=== PATIENT | female | born 1990 | race Two or more races ===

== ENCOUNTER 2022-08-17 09:12 | Emergency (ER) | payer MEDICAID, SELFPAY ==
--- NOTE | ~2022-08-17 | CT_ITS ---
EXAMINATION: CT HEAD WITHOUT CONTRAST CLINICAL INFORMATION: Dizziness COMPARISON: None TECHNIQUE: Contiguous axial imaging was performed from the skull base to vertex without intravenous administration of contrast. This CT examination was performed using dose optimization techniques as appropriate, variously including the following: *Automated exposure control *Adjustment of mA and/or kV according to patient size (this includes techniques or standardized protocols for targeted exams where dose is matched to indication/reason for exam; i.e. extremities or head) *Use of iterative reconstruction technique DLP: 677 mGy-cm FINDINGS: There is no acute intra-axial, extra-axial bleed, masses, collection or midline shift. There is no acute infarction, edema or mass effect. There is slight asymmetric lateral ventricles but not enlarged. There is bibasal ganglia calcifications. No abnormality seen in the posterior fossa. Bone windows reveal no calvarial abnormality. Bilateral paranasal sinuses and mastoid air cells are well-aerated. No scalp soft tissue abnormality seen. CT/CT head/brain wo IV con IMPRESSION: No acute intracranial process seen.
[2022-08-17 09:22] VITALS: BP 106/68; BP 107/72; PULSE 75; PULSE 86; RESP 18; TEMP 36.5; O2SAT 100; BMI 27.5
--- NOTE | 2022-08-17 09:39 | ECG_ITS ---
Test Reason : diziness Blood Pressure : / mmHG Vent. Rate : 077 BPM Atrial Rate : 077 BPM P-R Int : 158 ms QRS Dur : 098 ms QT Int : 398 ms P-R-T Axes : 047 042 041 degrees QTc Int : 450 ms Normal sinus rhythm RSR' or QR pattern in V1 suggests right ventricular conduction delay Otherwise normal ECG No previous ECGs available Referred By: Luana Hwang Electronically Signed By:PRITI BARCLAY MD
--- NOTE | 2022-08-17 09:44 | ED_ITS ---
HPI - Dizziness General Chief Complaint: Dizziness Stated Complaint: DIZZINESS ON STANDING Time Seen by Provider: 08/17/22 09:16 Source: patient Mode of arrival: EMS Limitations: no limitations History of Present Illness HPI Narrative: 31 yo female with hx of migraines, hypothyroidism notes she had a migraine typic al for her last night took tylenol with relief. Woke up this AM with the room spinning - felt anxious and hot as well as nausea. This happened one one other time but not as bad. She has no CP/SOB not on OCPs. No recent URIs but suffers from chronic allergies. MD elicited complaint: dizziness Onset (ago): hour(s) (2) Timing: sudden onset, awoke with symptoms and intermittent Severity: moderate Description: room spinning Context: change in body position History of similar symptoms: Yes Exacerbating factors: movement/ambulation and change in body position Relieving factors: rest and lying down Associated symptoms: nausea Related Data Previous Rx's Medication Instructions Recorded meclizine 25 mg tablet 25 mg PO TID PRN dizziness #30 tabs 08/17/22 ondansetron 4 mg disintegrating 4 mg PO Q8H PRN nausea and 08/17/22 tablet vomiting #20 tabs Allergies Allergy/AdvReac Type Severity Reaction Status Date / Time hydrocodone AdvReac Nausea and Verified 08/17/22 09:39 Vomiting oxycodone AdvReac Nausea and Uncoded 08/17/22 09:39 Vomiting Review of Systems Review of Systems: Constitutional : No Fever, No Chills, No Fatigue ENT/Mouth : No sore throat, No Rhinorrhea Eyes: No Eye Pain, No Swelling, No Redness Cardiovascular : No Chest Pain, No SOB, No Dyspnea on Exertion Respiratory : No Cough, No Sputum Gastrointestinal : pos Nausea, No Vomiting, No Diarrhea, No abdominal Pain Genitourinary : No Dysuria, No Urinary Frequency, No Hematuria, Musculoskeletal : No joint pain, No Myalgias, No Joint Swelling Skin : No Skin Lesions, No rash Neuro : No Weakness, No Numbness, pos Dizziness, resolved Headache Psych : pos Anxiety/Panic, No Depression Heme/Lymph: No Bruising, No Bleeding,No Lymphadenopathy Endocrine : No Polyuria, No Polydipsia All other systems reviewed and are negative [facility] Past Medical History Attestation statement: The following information was validated with the patient. Medical History Hypothyroidism Migraines Social History Social History (Updated 08/17/22 @ 09:45 by Luana Hwang DO) Patient Tobacco Use Status: Never used Tobacco Advance Directives: No Physical Exam 2 Vital Signs: Vital Signs: Last Vital Signs Temp 97.7 F 08/17/22 09:22 Pulse 75 08/17/22 12:14 Resp 16 08/17/22 12:14 BP 98/62 08/17/22 12:14 Pulse Ox 98 08/17/22 12:14 O2 Del Method 08/17/22 12:14 BMI result Body Mass Index 27.5 Appearance: Alert. Oriented X3. No acute distress. Eyes: Pupils equal, round and reactive to light. ENT: Pharynx normal. TMs normal Neck: Normal inspection. Neck supple. CVS: Normal heart rate and rhythm. Pulses normal. Respiratory: No respiratory distress. Breath sounds normal. Abdomen: Soft and nontender. Skin: Skin warm and dry. Normal skin color. Normal skin turgor. Extremities: No lower extremity edema. No calf ttp Neuro: Oriented X 3. No motor deficit. No sensory deficit. no drift NIH Stroke Scale Internal: Initial- Upon Arrival Level of Consciousness: Alert Level of Consciousness Questions: Answers both questions correctly Level of Consciousness Commands: Performs both tasks correctly Best Gaze: Normal Visual: No visual loss Facial Palsy: Normal Motor Arm (Right): No drift Motor Arm (Left): No drift Motor Leg (Right): No drift Motor Leg (Left): No drift Limb Ataxia: Absent Sensory: Normal Best Language: No aphasia Dysarthia: Normal Extinction and Inattention: No abnormality Score: 0 Course Course Course Narrative: negative head CT, labs normal TSH mildly elevated - not taking her medications UA contaminated no urinary symptoms MDM - Dizziness MDM Narrative Medical decision making narrative: 31 yo female with hx of migraines and hypothyroidism here with c/o resolved migraine last night typical for her - no fevers, resolved and no meningeal signs doubt SAH or [employer] infection. Now c/o dizziness denies heavy bleeding, GIB symptoms CP/SOB not on OCPs. Has no other localizing neuro symptoms - doubt ACS/PE/posterior stroke. Possible vertigo had this one other time but much milder. Will hydrate obtain labs, EKG, zofran and PO meclizine dispo per results and findings. Lab Data Result diagrams: 08/17/22 10:15 08/17/22 10:15 Labs: Lab Results 08/17/22 08/17/22 08/17/22 Range/Units 09:46 09:46 10:15 WBC 9.1 (4.8-10.8) X10*3/uL RBC 4.15 L (4.20-5.50) X10*6/uL Hgb 12.8 (12.0-16.0) g/dl Hct 37.2 (37.0-47.0) % MCV 89.6 (80.0-98.0) fL MCH 30.8 (27.0-33.0) pg MCHC 34.4 (31.0-35.0) g/dl RDW 12.4 (11.0-16.0) % Plt Count 177 (160-400) X10*3/uL MPV 12.1 (9.4-12.3) fL Immature Gran % (Auto) 0.3 (0.0-0.4) % Neut % (Auto) 68.4 (45-73) % Lymph % (Auto) 21.4 (20-40) % [place] % (Auto) 7.9 (2-11) % Eos % (Auto) 1.6 (0-4) % Baso % (Auto) 0.4 (0-2) % Lymph # (Auto) 2.0 (1.2-4.9) X10*3/uL [place] # (Auto) 0.7 (0.1-1.2) X10*3/uL Eos # (Auto) 0.2 (0.0-0.4) X10*3/uL Baso # (Auto) 0.0 (0.0-0.2) X10*3/uL Abs Immat Gran (auto) 0.03 (0.00-0.03) X10*3/uL Absolute Neuts (auto) 6.2 (2.0-8.3) x10*3/uL Absolute Nucleated RBC 0.000 (0.0-0.012) X10*3/uL Nucleated RBC % (auto) 0.0 (0.0-0.2) /100WBC Sodium Potassium Chloride Carbon Dioxide Anion Gap BUN Creatinine Estim Creat Clear Calc Estimated GFR Random Glucose Calcium Magnesium TSH (0.32-4.0) uIU/mL Free T4 (0.71-1.85) ng/dL Urine Color Yellow Urine Appearance Clear Urine pH 5.5 (5.0-9.0) Ur Specific [place] 1.025 (1.005-1.025) Urine Protein Negative (Neg-Trace) mg/dL Urine Glucose (UA) Negative (Negative) mg/dL Urine Ketones Trace (Negative) mg/dL Urine Blood Negative (Negative) Urine Nitrite Negative (Negative) Ur Leukocyte Esterase Small (1+) H (Negative) Urine RBC 0-2 (0-2) /HPF Urine WBC 6-10 H (0-5) /HPF Ur Squamous Epith Cells 3-5 (0-2) /HPF Urine Bacteria 3+ (None Seen) Hyaline Casts 0-2 (0-2) /LPF Urine Test NEGATIVE (NEGATIVE) COVID-19 (SURYA) (Negative) COVID-19 Clin Com 08/17/22 08/17/22 08/17/22 Range/Units 10:15 10:15 10:15 WBC (4.8-10.8) X10*3/uL RBC (4.20-5.50) X10*6/uL Hgb (12.0-16.0) g/dl Hct (37.0-47.0) % MCV (80.0-98.0) fL MCH (27.0-33.0) pg MCHC (31.0-35.0) g/dl RDW (11.0-16.0) % Plt Count (160-400) X10*3/uL MPV (9.4-12.3) fL Immature Gran % (Auto) (0.0-0.4) % Neut % (Auto) (45-73) % Lymph % (Auto) (20-40) % [place] % (Auto) (2-11) % Eos % (Auto) (0-4) % Baso % (Auto) (0-2) % Lymph # (Auto) (1.2-4.9) X10*3/uL [place] # (Auto) (0.1-1.2) X10*3/uL Eos # (Auto) (0.0-0.4) X10*3/uL Baso # (Auto) (0.0-0.2) X10*3/uL Abs Immat Gran (auto) (0.00-0.03) X10*3/uL Absolute Neuts (auto) (2.0-8.3) x10*3/uL Absolute Nucleated RBC (0.0-0.012) X10*3/uL Nucleated RBC % (auto) (0.0-0.2) /100WBC Sodium Cancelled 137 Potassium Cancelled 4.3 Chloride Cancelled 106 Carbon Dioxide Cancelled 20 L Anion Gap Cancelled 15 BUN Cancelled 8 L Creatinine Cancelled 0.65 Estim Creat Clear Calc Cancelled 108.0 Estimated GFR Cancelled > 60 Random Glucose Cancelled 109 Calcium Cancelled 8.5 Magnesium Cancelled 1.6 TSH 4.71 H (0.32-4.0) uIU/mL Free T4 1.01 (0.71-1.85) ng/dL Urine Color Urine Appearance Urine pH (5.0-9.0) Ur Specific [place] (1.005-1.025) Urine Protein (Neg-Trace) mg/dL Urine Glucose (UA) (Negative) mg/dL Urine Ketones (Negative) mg/dL Urine Blood (Negative) Urine Nitrite (Negative) Ur Leukocyte Esterase (Negative) Urine RBC (0-2) /HPF Urine WBC (0-5) /HPF Ur Squamous Epith Cells (0-2) /HPF Urine Bacteria (None Seen) Hyaline Casts (0-2) /LPF Urine Test (NEGATIVE) COVID-19 (SURYA) Negative (Negative) COVID-19 Clin Com See Note ECG Data Attestation: I personally reviewed and interpreted this ECG as follows: ECG interpretation date: 08/17/22 ECG interpretation time: 10:25 Interpretation: Rate: 77 Rhythm: NSR [place]: normal Normal P waves. Normal LIAN. Normal QRS complex. ST T wave : normal no GILMAR qTC: normal prior studies: no acute ischemia The study has been interpreted contemporaneously by me. . Discharge Plan Discharge Clinical Impression: Dizziness Patient Disposition: Home, Self-Care Instructions: Vertigo (ED), Dizziness (ED) Additional Instructions: return to ED for any worsening symptoms or concerns CT head normal please follow up with your doctor if not better in 2 days Prescriptions: New meclizine 25 mg tablet 25 mg PO TID PRN (Reason: dizziness) Qty: 30 0RF ondansetron 4 mg tablet,disintegrating 4 mg PO Q8H PRN (Reason: nausea and vomiting) Qty: 20 0RF Stand Alone Forms: Work/School Release
[2022-08-17 09:56] LABS: Appearance Urine Clear; Color Urine Yellow; Glucose Urine UA Negative (Negative); Leukocyte Esterase Urine Small (1+) (Negative); Nitrite Urine Negative (Negative); PH 5.5 (5.0-9.0); Specific Gravity - Urine 1.025 (1.005-1.025); UMIC TRIGGER UACC YES; Urine Blood Negative (Negative); Urine Ketones Trace mg/dL (Negative); Urine Protein Negative (Neg-Trace)
[2022-08-17 09:57] LABS: UPreg QC Valid YES
[2022-08-17 09:58] LABS: Urine Pregnancy NEGATIVE (NEGATIVE)
[2022-08-17 10:01] LABS: Bacteria Urine 3+ (None Seen); Hyaline Casts Urine 0-2 /LPF (0-2); RBC Urine 0-2 /HPF (0-2); UACC Culture Trigger YES
[2022-08-17 10:19] LABS: MANUAL DIFF FLAG NO
[2022-08-17] MEDS: Lactated Ringers 1,000 ML 999 ML IV (10:22)
[2022-08-17] MEDS: ondansetron HCL 4 MG/2 ML VIAL IVPUSH (10:22)
[2022-08-17] MEDS: Meclizine HCl 25 MG TABLET PO (10:22)
[2022-08-17 10:24] LABS: Basophils Percent Auto 0.4 % (0-2); Eosinophils Absolute Auto 0.2 X10*3/uL (0.0-0.4); Eosinophils Percent Auto 1.6 % (0-4); Hematocrit 37.2 % (37.0-47.0); Hemoglobin 12.8 g/dl (12.0-16.0); Imm Gran Abs Auto 0.03 X10*3/uL (0.00-0.03); Imm Gran Pct Auto 0.3 % (0.0-0.4); Lymphocytes Percent Auto 21.4 % (20-40); Mean Corpuscular HGB Conc 34.4 g/dl (31.0-35.0); Mean Corpuscular Hemoglobin 30.8 pg (27.0-33.0); Mean Corpuscular Volume 89.6 fL (80.0-98.0); Mean Platelet Volume 12.1 fL (9.4-12.3); Monocytes Absolute Auto 0.7 X10*3/uL (0.1-1.2); Monocytes Percent Auto 7.9 % (2-11); Neutrophils Absolute Auto 6.2 x10*3/uL (2.0-8.3); Neutrophils Percent Auto 68.4 % (45-73); Platelet Count 177 X10*3/uL (160-400); Red Blood Count 4.15 X10*6/uL (4.20-5.50); Red Cell Distribution Width 12.4 % (11.0-16.0); White Blood Count 9.1 X10*3/uL (4.8-10.8)
[2022-08-17 10:51] LABS: COVID-19 Test Negative (Negative); IDNOW Serial# 55D5AD1C
[2022-08-17 10:54] LABS: TSH reflex Free T4 4.71 uIU/mL (0.32-4.0)
[2022-08-17 12:00] LABS: Anion Gap 15 (12-20); Blood Urea Nitrogen 8 mg/dL (9-16); Calcium 8.5 mg/dL (8.4-10.2); Carbon Dioxide 20 mmol/L (22-29); Chloride 106 mmol/L (96-108); Estimated Glomerular Filt Rate > 60; Glucose Random 109 mg/dL (60-115); Magnesium 1.6 mg/dL (1.6-2.6); Potassium 4.3 mmol/L (3.3-5.1); Sodium 137 mmol/L (135-145)
[2022-08-17 12:12] LABS: Free T4 (Free Thyroxine) 1.01 ng/dL (0.71-1.85)
[2022-08-17 12:14] VITALS: BP 98/62; PULSE 75; RESP 16; O2SAT 98
[2022-08-17] MEDS: Midazolam HCl/PF 2 MG/2 ML VIAL 1 MG IVPUSH (12:56)
== END 2022-08-17 14:27 | disposition home or self-care (01) ==
PROVIDERS: Emergency Provider Emergency Medicine
DX: R42 Dizziness and giddiness (principal); Z20.822 Contact with and (suspected) exposure to COVID-19; Z79.899 Other long term (current) drug therapy
CPT/HCPCS: 36415; 70450; 80048; 81001; 81025; 83735; 84439; 84443; 85025; 87086; 87635; 93005; 96361; 96374; 96375; 99284; J2250; J2405

== ENCOUNTER 2022-08-22 09:28 | Observation (INO) | payer MEDICAID, SELFPAY ==
[2022-08-22] VITALS (13 sets, daily range): BP systolic 96–128; BP diastolic 48–79; PULSE 62–103; RESP 12–18; TEMP 36.2–37.3; O2SAT 98–100; BMI 26.4
--- NOTE | ~2022-08-22 | MR_ITS ---
EXAMINATION: MR BRAIN WITHOUT CONTRAST CLINICAL INFORMATION: Dizziness, off balance, nausea and vomiting, and intermittent headache. COMPARISON: Head CT August 17, 2022. TECHNIQUE: Multiplanar, multisequence imaging of the brain was performed without intravenous contrast. FINDINGS: There is no acute infarction, mass, hemorrhage, or extra-axial collection. The ventricles, sulci, and basilar cisterns are normal in size and configuration. A few mild nonspecific foci of T2/FLAIR hyperintensity are seen within the cerebral white matter. There is mild nonsuppression of FLAIR signal within the high frontal parietal sulci as seen on series 9 image 20/. The flow voids of the major intracranial arteries appear intact. The bones and extracranial soft tissues are unremarkable. MR/MR head/brain wo con IMPRESSION: No acute infarct, mass lesion, or evidence of hydrocephalus. Mild nonsuppression of FLAIR signal seen within the high frontal parietal sulci. This finding is nonspecific and could be artifactual or related to trace subarachnoid hemorrhage or other causes of meningeal inflammation. If clinical signs of meningeal inflammation are present, consider lumbar puncture.
--- NOTE | ~2022-08-22 | CT_ITS ---
EXAMINATION: CT ANGIOGRAM HEAD CT ANGIOGRAM NECK CLINICAL INFORMATION: Reason for Exam unsteady gait, abnml MRI COMPARISON: Same day MRI of the head without contrast TECHNIQUE: Initial noncontrast maternity floor supervisor imaging of the head and neck was performed. Noncontrast head CT was also performed. Test bolus sequences followed by intravenous administration 70 mL of Omnipaque 350. Helical imaging was performed in the axial plane from the aortic arch to the skull vertex. Delayed postcontrast imaging of the head was also performed. The data was processed at the diagnostic radiologic technologist's workstation for generation of MIP sequences. Angled MIPs and volume rendered reformatted images were also generated at an offline 3D workstation. Stenoses are assessed in accordance with NASCET criteria unless otherwise indicated. DLP: 2287 mGy-cm This CT examination was performed using dose optimization techniques as appropriate, variously including the following: *Automated exposure control. *Adjustment of mA and/or kV according to patient size (this includes techniques or standardized protocols for targeted exams where dose is matched to indication/reason for exam; i.e. extremities or head). *Use of iterative reconstruction technique. FINDINGS: CT Head: There is no evidence of acute intracranial hemorrhage or edematous territorial infarction. Bilateral globi pallidi mineralization. There is no abnormal attenuation within the brain parenchyma. Ja[place]gui-white matter differentiation is preserved. The ventricles are normal in size and configuration. No evidence for obstructive hydrocephalus. Asymmetric caliber of the lateral ventricles, likely on a congenital basis. No abnormal mass effect or midline shift. No extra-axial fluid collections. No pathologic intra-axial enhancement or regional oligemia. No acute soft tissue or osseous abnormalities. The mastoid air cells and paranasal sinuses are clear. CT Neck: The thyroid gland and remaining cervical soft tissues are within normal limits. There are several anomalies of the craniocervical junction including hypoplastic and flattened occipital condyles, a well-corticated osseous fragment adjacent to the junction of the dens and right C2 body, likely representing an unfused secondary ossification center, and an anteroposteriorly thinned and craniocaudally elongated posterior arch of C1 which is positioned anterior to the C2 posterior elements. CT Upper Chest: The visualized lung apices and upper mediastinum are within normal limits. Neck CTA: Aortic Arch: Normal contour and caliber. Classic 3 vessel branching pattern of the aortic arch. Great Vessel Origins: No significant stenosis of the branch origins. Right Common Carotid Artery: No focal stenosis or occlusion. Cervical Right Internal Carotid Artery: Normal opacification without focal stenosis or occlusion. Left Common Carotid Artery: No focal stenosis or occlusion. Cervical Left Internal Carotid Artery: Normal opacification without focal stenosis or occlusion. Cervical Right Vertebral Artery: No focal stenosis or occlusion. Cervical Left Vertebral Artery: No focal stenosis or occlusion. Brain CTA: Intracranial Internal Carotid Arteries: No focal stenosis or occlusion. Right Anterior Cerebral Artery: Normal A1 segment. Normal opacification of the distal JOB segments. Left Anterior Cerebral Artery: Normal A1 segment. Normal opacification of the distal JOB segments. Anterior Communicating Artery: Normal. Right Middle Cerebral Artery: Normal M1 segment of the MCA without focal stenosis or occlusion. Normal arborization of the distal segments. Left Middle Cerebral Artery: Normal M1 segment of the MCA without focal stenosis or occlusion. Normal arborization of the distal segments. Right Vertebral Artery: Normal V4 segment. Left Vertebral Artery: Normal V4 segment. Basilar Artery: Normal without focal stenosis or occlusion. Normal appearance of the proximal superior cerebellar arteries. Right Posterior Cerebral Artery: The P1 segment is diminutive. origin of the FRESCO ARTIST with robust opacification of the posterior communicating artery. Normal opacification of the distal FRESCO ARTIST segments. Left Posterior Cerebral Artery: Normal P1 segment. Normal opacification of the distal FRESCO ARTIST segments. Normal opacification of the superior sagittal, straight, transverse, and sigmoid sinuses. CT/CT angio head neck IMPRESSION: 1. No acute intracranial abnormality including hemorrhage, mass effect, hydrocephalus, or acute territorial edematous infarction. 2. No arterial high-grade stenosis or large vessel occlusion in the head or neck. 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
--- NOTE | 2022-08-22 11:22 | ECG_ITS ---
Test Reason : diziness Blood Pressure : / mmHG Vent. Rate : 074 BPM Atrial Rate : 074 BPM P-R Int : 148 ms QRS Dur : 092 ms QT Int : 408 ms P-R-T Axes : 065 037 038 degrees QTc Int : 452 ms Normal sinus rhythm Normal ECG When compared with ECG of 17-AUG-2022 10:19, RSR' or QR pattern in V1 suggests right ventricular conduction delay less evident Referred By: Sariah Neff Electronically Signed By:PRITI BARCLAY MD
--- NOTE | 2022-08-22 11:27 | ED_ITS ---
HPI - Dizziness General Chief Complaint: Dizziness <DENIS Riojas Last Filed: 08/22/22 18:06> Stated Complaint: Vertigo <DENIS Riojas Last Filed: 08/22/22 18:06> Time Seen by Provider: 08/22/22 10:52 <DENIS Riojas Last Filed: 08/22/22 18:06> Source: patient <DENIS Riojas Last Filed: 08/22/22 18:06> Mode of arrival: ambulatory <DENIS Riojas Last Filed: 08/22/22 18:06> History of Present Illness HPI Narrative: 31-year-old female with a past medical history of hypothyroid, migraines, presenting to the ED complaining of room spinning dizziness, lightheadedness, feeling off balance, nausea, vomiting x a few days. Reports associated intermittent headache and blurry vision. Patient was seen and treated in our ED on 08/17 for similar symptoms, had labs that were WNL and head CT that was unremarkable. States symptoms have been persistent/worsening since then. Patient states she is unable to ambulate, cannot do laundry or any ADLs. Denies CP anticoagulation, fever chills, head trauma/fall,, tingling, weakness <DENIS Riojas Last Filed: 08/22/22 18:06> MD elicited complaint: dizziness, lightheadedness, difficulty walking, vertigo and disequilibrium <DENIS Riojas Last Filed: 08/22/22 18:06> Related Data Home Medications: Previous Rx's Medication Instructions Recorded meclizine 25 mg tablet 25 mg PO TID PRN dizziness #30 tabs 08/17/22 ondansetron 4 mg disintegrating 4 mg PO Q8H PRN nausea and 08/17/22 tablet vomiting #20 tabs <DENIS Riojas Last Filed: 08/22/22 18:06> Allergies/Adverse Reactions: Allergies Allergy/AdvReac Type Severity Reaction Status Date / Time hydrocodone AdvReac Nausea and Verified 08/17/22 09:39 Vomiting oxycodone AdvReac Nausea and Uncoded 08/17/22 09:39 Vomiting <DENIS Riojas Last Filed: 08/22/22 18:06> Review of Systems Review of Systems: Constitutional: No Fever, No Chills, No Fatigue, No Malaise ENT/Mouth: No Ear Pain, No Nasal Congestion, No Sinus Pain, No Hoarseness, No sore throat, No Rhinorrhea, No Swallowing Difficulty Eyes: No Eye Pain, No Swelling, No Redness, No Discharge, + intermittent blurry vision Cardiovascular: No Chest Pain, No SOB, No Dyspnea on Exertion, No Orthopnea, No Edema, No Palpitations Respiratory: No Cough, No Sputum, No Dyspnea Gastrointestinal: No Nausea, No Vomiting, No Diarrhea, No Constipation, No Abdominal pain Genitourinary: No Dysuria, No Urinary Frequency, No Hematuria, No Urinary Incontinence/retention, No Urgency, No Flank Pain, No Urinary Flow Changes Musculoskeletal: No joint pain, No Myalgias, No Joint Swelling Skin: No Skin Lesions, No rash Neuro: No Weakness, No Numbness, No Paresthesias, No Loss of Consciousness, + Dizziness, +lightheadedness, + intermittent Headache <DENIS Riojas - Last Filed: 08/22/22 18:06> Yes all other systems are reviewed and are negative <DENIS Riojas - Last Filed: 08/22/22 18:06> Constitutional: Constitutional: Reports as per HPI <DENIS Riojas - Last Filed: 08/22/22 18:06> Eyes: Eyes: Reports photophobia <DENIS Riojas - Last Filed: 08/22/22 18:06> Neurologic: Denies Abnormal speech present <DENIS Riojas - Last Filed: 08/22/22 18:06> [facility] Past Medical History Attestation statement: The following information was validated with the patient. <DENIS Riojas - Last Filed: 08/22/22 18:06> Medical History: Medical History Hypothyroidism Migraines <DENIS Riojas Last Filed: 08/22/22 18:06> Social History Social History: Social History Patient Tobacco Use Status: Never used Tobacco Use of substances other than those prescribed or required for medical reasons: No Advance Directives: No Advance Directives Information Provided: No Patient : No <DENIS Riojas - Last Filed: 08/22/22 18:06> Physical Exam Vital Signs: Vital Signs: Last Vital Signs Temp 97.8 F 08/22/22 21:45 Pulse 103 H 08/22/22 21:45 Resp 16 08/22/22 21:45 BP 128/79 08/22/22 21:45 Pulse Ox 100 08/22/22 21:45 O2 Del Method 08/22/22 21:45 BMI result Body Mass Index 26.4 <DENIS Riojas - Last Filed: 08/22/22 18:06> Vital Signs: Last Vital Signs Temp 97.8 F 08/22/22 21:45 Pulse 103 H 08/22/22 21:45 Resp 16 08/22/22 21:45 BP 128/79 08/22/22 21:45 Pulse Ox 100 08/22/22 21:45 O2 Del Method 08/22/22 21:45 BMI result Body Mass Index 26.4 <DENIS Mills - Last Filed: 08/22/22 23:09> Const: General: cooperative, healthy appearing, no acute distress, alert and awake <DENIS Riojas - Last Filed: 08/22/22 18:06> Orientation/consciousness: patient oriented x3 <DENIS Riojas - Last Filed: 08/22/22 18:06> Limitations: no limitations <DENIS Riojas - Last Filed: 08/22/22 18:06> HEENT: Head: Yes normal to inspection and Yes atraumatic <DENIS Riojas - Last Filed: 08/22/22 18:06> Ears: hearing grossly normal bilaterally <DENIS Riojas - Last Filed: 08/22/22 18:06> General nose exam: Normal external nose present <DENIS Riojas - Last Filed: 08/22/22 18:06> Face and sinus: Yes normal facial exam <DENIS Riojas - Last Filed: 08/22/22 18:06> Eyes: General: appearance normal, both eyes and all related structures <DENIS Riojas - Last Filed: 08/22/22 18:06> Pupils: Equal, round and reactive pupils present <Sariah Neff PA - Last Filed: 08/22/22 18:06> EOM: EOMs intact bilaterally <Sariah Neff PA - Last Filed: 08/22/22 18:06> Direct Ophthalmoscopy: photophobia <Sariah Neff PA - Last Filed: 08/22/22 18:06> Neck: Neck: Yes normal visual inspection and Yes no meningeal signs <Sariah Neff PA - Last Filed: 08/22/22 18:06> Resp: Effort & Inspection: normal respiratory effort and no respiratory distress <Sariah Neff PA - Last Filed: 08/22/22 18:06> Auscultation: clear to auscultation bilaterally, no crackles, no rales, no rhonchi and no wheezes <Sariah Neff PA - Last Filed: 08/22/22 18:06> Cardio: Rate: regular rate <Sariah Neff PA - Last Filed: 08/22/22 18:06> Heart sounds: S1 normal heart sound present and S2 normal heart sound present <Sariah Neff PA - Last Filed: 08/22/22 18:06> GI: Inspection: Yes normal to inspection <Sariah Neff PA - Last Filed: 1 18:06> Palpation (GI): Soft to palpation, nontender, no guarding and not rigid <Sariah Neff PA - Last Filed: 08/22/22 18:06> Skin: Rashes: no rashes <Sariah Neff PA - Last Filed: 08/22/22 18:06> Wounds: no wounds <Sariah Neff PA - Last Filed: 08/22/22 18:06> Neuro: Other: Unsteady gait, no ataxia <Sariah Neff PA - Last Filed: 08/22/22 18:06> General: patient oriented x3, tone normal, moves all extremities, no meningeal signs, no focal motor deficits and CN's II-XI intact bilaterally <Sariah Neff PA - Last Filed: 08/22/22 18:06> Cranial nerves: Yes Equal, round and reactive pupils present <Sariah JasminDENIS robbins - Last Filed: 08/22/22 18:06> Cognition (Neuro): normal cognition <Sariah JasminDENIS robbins - Last Filed: 08/22/22 18:06> Speech: No Abnormal speech present <Sariah JasminDENIS robbins - Last Filed: 08/22/22 18:06> Gait exam (Neuro): not ataxic <DENIS Riojas - Last Filed: 08/22/22 18:06> Motor exam (neuro): 5/5 motor strength present throughout, Pronator motor function not present and no tremor noted <DENIS Riojas - Last Filed: 08/22/22 18:06> Coordination: [id number] test normal <DENIS Riojas - Last Filed: 08/22/22 18:06> Romberg Test: Negative <DENIS Riojas - Last Filed: 08/22/22 18:06> Extrem: General: Yes normal to inspection <DENIS Riojas - Last Filed: 08/22/22 18:06> Course Course Course Narrative: -UA contaminated. COVID-19 negative MR head/brain wo con IMPRESSION: No acute infarct, mass lesion, or evidence of hydrocephalus. ? Mild nonsuppression of FLAIR signal seen within the high frontal parietal sulci. This finding is nonspecific and could be artifactual or related to trace subarachnoid hemorrhage or other causes of meningeal inflammation. If clinical signs of meningeal inflammation are present, consider lumbar puncture. > results discussed with patient. She reports still continued dizziness. No meningeal signs, low suspicion for infectious etiology. She is agreeable to lumbar puncture. Consent signed and in patient's chart. Will wait for labs prior to procedure -orthostatic vital signs mildly positive > will give additional L IVF totaling 2L and repeat -labs notable for mild hypocalcemia to 7.8. Patient is asymptomatic in this regard will give p.o. calcium. Troponin also mildly elevated to 5.9 > will obtain 3 hour repeat -1715--LP performed without complication. Patient now in supine position -1800--ED care transferred to DENIS Irby pending CSF results, re-eval, repeat orthostatic and dispo per results <DENIS Riojas - Last Filed: 08/22/22 18:06> Reevaluation(s) Reevaluation #1: Analysis of CSF reveals increased red blood cells in tube 1 and increased protein. Concerns for possible subarachnoid and/or Guillain-Baldwin. Patient's orthostatic vital signs were repeated and patient remains orthostatic and symptomatic. I did try to ambulate patient she is walking with a wide ataxic gait, patient has 2+ deep tendon reflexes plantar and patellar. <DENIS Mills - Last Filed: 08/22/22 23:09> Time: 20:13 <DENIS Mills - Last Filed: 08/22/22 23:09> Reevaluation #2: I spoke to neurology who tells me nothing to be done acutely about this at this time as symptoms are not acute in onset. Neurology will follow patient while in hospital. Baron El recommends CTA head and neck. Recommends tylenol if needed Plan to admit to hospital. <DENIS Mills Last Filed: 08/22/22 23:09> Reevaluation #3: CTA no acute findings patient will be admitted to the hospital for observation. <DENIS Mills Last Filed: 08/22/22 23:09> Time: 23:09 <DENIS Mills - Last Filed: 08/22/22 23:09> MDM - Dizziness MDM Narrative Medical decision making narrative: 31-year-old female with a past medical history of hypothyroid, migraines, presenting to the ED complaining of room spinning dizziness, lightheadedness, feeling off balance, nausea, vomiting x a few days. On exam mildly hypotensive, NAD, no focal neuro deficits, ambulating with unsteady gait, no ataxia, no focal neuro deficits. NIHSS=0. Patient is out of the window for tPA. Concern for subacute CVA vs posterior stroke vs BPPV. Low suspicion for ACS/PE or ICH Plan: EKG, labs, UA, orthostatics, IVF, symptomatic treatment, brain MRI for further evaluation due to recent negative head CT <DENIS Riojas Last Filed: 08/22/22 18:06> Differential Diagnosis Differential diagnosis: Likely benign paroxysmal positional vertigo, orthostatic hypotension and cerebrovascular accident <DENIS Riojas - Last Filed: 08/22/22 18:06> Medical Records Attestation: I reviewed the patient's medical records. <DENIS Riojas - Last Filed: 08/22/22 18:06> Lab Data Attestation: I reviewed the patient's lab results. <DENIS Riojas - Last Filed: 08/22/22 18:06> Result diagrams: : 08/22/22 15:41 08/22/22 15:41 <DENIS Riojas - Last Filed: 08/22/22 18:06> Labs: Lab Results 08/22/22 08/22/22 08/22/22 Range/Units 14:17 14:17 14:17 WBC (4.8-10.8) X10*3/uL RBC (4.20-5.50) X10*6/uL Hgb (12.0-16.0) g/dl Hct (37.0-47.0) % MCV (80.0-98.0) fL MCH (27.0-33.0) pg MCHC (31.0-35.0) g/dl RDW (11.0-16.0) % Plt Count (160-400) X10*3/uL MPV (9.4-12.3) fL Immature Gran % (Auto) (0.0-0.4) % Neut % (Auto) (45-73) % Lymph % (Auto) (20-40) % [place] % (Auto) (2-11) % Eos % (Auto) (0-4) % Baso % (Auto) (0-2) % Lymph # (Auto) (1.2-4.9) X10*3/uL [place] # (Auto) (0.1-1.2) X10*3/uL Eos # (Auto) (0.0-0.4) X10*3/uL Baso # (Auto) (0.0-0.2) X10*3/uL Abs Immat Gran (auto) (0.00-0.03) X10*3/uL Absolute Neuts (auto) (2.0-8.3) x10*3/uL Absolute Nucleated RBC (0.0-0.012) X10*3/uL Nucleated RBC % (auto) (0.0-0.2) /100WBC Sodium (135-145) mmol/L Potassium (3.3-5.1) mmol/L Chloride (96-108) mmol/L Carbon Dioxide (22-29) mmol/L Anion Gap (12-20) BUN (9-16) mg/dL Creatinine (0.5-1.4) mg/dL Estim Creat Clear Calc Estimated GFR Random Glucose (60-115) mg/dL Calcium (8.4-10.2) mg/dL Magnesium (1.6-2.6) mg/dL Total Bilirubin (0.0-1.0) mg/dL Direct Bilirubin (0.0-0.5) mg/dL AST (5-31) U/L ALT (0-31) U/L Alkaline Phosphatase (39-117) U/L Troponin I High Sens (<3.5-17.0) ng/L Total Protein (6.5-8.0) g/dL Albumin (3.5-5.0) g/dL Urine Color Yellow Urine Appearance Cloudy Urine pH 6.0 (5.0-9.0) Ur Specific [place] <= 1.005 (1.005-1.025) Urine Protein Negative (Neg-Trace) mg/dL Urine Glucose (UA) Negative (Negative) mg/dL Urine Ketones Negative (Negative) mg/dL Urine Blood Small (1+) H (Negative) Urine Nitrite Negative (Negative) Ur Leukocyte Esterase Large (3+) H (Negative) Urine RBC 0-2 (0-2) /HPF Urine WBC 21-50 H (0-5) /HPF Ur Squamous Epith Cells 6-10 (0-2) /HPF Urine Bacteria 2+ (None Seen) Hyaline Casts 0-2 (0-2) /LPF Urine Test NEGATIVE (NEGATIVE) CSF Tube Number CSF Volume ML CSF Appearance CSF Color CSF WBC MM*3 CSF RBC MM*3 CSF Neutrophils % CSF Lymphocytes % CSF Monocytes % % CSF Other Cells % % CSF Appearance (b) CSF Glucose mg/dL CSF Total Protein (15-45) mg/dL COVID-19 (SURYA) Negative (Negative) COVID-19 Clin Com See Note 08/22/22 08/22/22 08/22/22 Range/Units 15:41 15:41 15:41 WBC 7.2 (4.8-10.8) X10*3/uL RBC 4.12 L (4.20-5.50) X10*6/uL Hgb 12.6 (12.0-16.0) g/dl Hct 37.4 (37.0-47.0) % MCV 90.8 (80.0-98.0) fL MCH 30.6 (27.0-33.0) pg MCHC 33.7 (31.0-35.0) g/dl RDW 12.6 (11.0-16.0) % Plt Count 184 (160-400) X10*3/uL MPV 11.5 (9.4-12.3) fL Immature Gran % (Auto) 0.3 (0.0-0.4) % Neut % (Auto) 69.6 (45-73) % Lymph % (Auto) 22.0 (20-40) % [place] % (Auto) 5.9 (2-11) % Eos % (Auto) 1.8 (0-4) % Baso % (Auto) 0.4 (0-2) % Lymph # (Auto) 1.6 (1.2-4.9) X10*3/uL [place] # (Auto) 0.4 (0.1-1.2) X10*3/uL Eos # (Auto) 0.1 (0.0-0.4) X10*3/uL Baso # (Auto) 0.0 (0.0-0.2) X10*3/uL Abs Immat Gran (auto) 0.02 (0.00-0.03) X10*3/uL Absolute Neuts (auto) 5.0 (2.0-8.3) x10*3/uL Absolute Nucleated RBC 0.000 (0.0-0.012) X10*3/uL Nucleated RBC % (auto) 0.0 (0.0-0.2) /100WBC Sodium 141 (135-145) mmol/L Potassium 4.2 (3.3-5.1) mmol/L Chloride 112 H (96-108) mmol/L Carbon Dioxide 22 (22-29) mmol/L Anion Gap 11 L (12-20) BUN 5 L (9-16) mg/dL Creatinine 0.65 (0.5-1.4) mg/dL Estim Creat Clear Calc 106.1 Estimated GFR > 60 Random Glucose 96 (60-115) mg/dL Calcium 7.8 L D (8.4-10.2) mg/dL Magnesium 1.7 (1.6-2.6) mg/dL Total Bilirubin 0.4 (0.0-1.0) mg/dL Direct Bilirubin 0.2 (0.0-0.5) mg/dL AST 14 (5-31) U/L ALT 16 (0-31) U/L Alkaline Phosphatase 54 (39-117) U/L Troponin I High Sens 5.9 (<3.5-17.0) ng/L Total Protein 6.2 L (6.5-8.0) g/dL Albumin 3.8 (3.5-5.0) g/dL Urine Color Urine Appearance Urine pH (5.0-9.0) Ur Specific [place] (1.005-1.025) Urine Protein (Neg-Trace) mg/dL Urine Glucose (UA) (Negative) mg/dL Urine Ketones (Negative) mg/dL Urine Blood (Negative) Urine Nitrite (Negative) Ur Leukocyte Esterase (Negative) Urine RBC (0-2) /HPF Urine WBC (0-5) /HPF Ur Squamous Epith Cells (0-2) /HPF Urine Bacteria (None Seen) Hyaline Casts (0-2) /LPF Urine Test (NEGATIVE) CSF Tube Number CSF Volume ML CSF Appearance CSF Color CSF WBC MM*3 CSF RBC MM*3 CSF Neutrophils % CSF Lymphocytes % CSF Monocytes % % CSF Other Cells % % CSF Appearance (b) CSF Glucose mg/dL CSF Total Protein (15-45) mg/dL COVID-19 (SURYA) (Negative) COVID-19 Clin Com 08/22/22 08/22/22 08/22/22 Range/Units 17:12 17:12 17:12 WBC (4.8-10.8) X10*3/uL RBC (4.20-5.50) X10*6/uL Hgb (12.0-16.0) g/dl Hct (37.0-47.0) % MCV (80.0-98.0) fL MCH (27.0-33.0) pg MCHC (31.0-35.0) g/dl RDW (11.0-16.0) % Plt Count (160-400) X10*3/uL MPV (9.4-12.3) fL Immature Gran % (Auto) (0.0-0.4) % Neut % (Auto) (45-73) % Lymph % (Auto) (20-40) % [place] % (Auto) (2-11) % Eos % (Auto) (0-4) % Baso % (Auto) (0-2) % Lymph # (Auto) (1.2-4.9) X10*3/uL [place] # (Auto) (0.1-1.2) X10*3/uL Eos # (Auto) (0.0-0.4) X10*3/uL Baso # (Auto) (0.0-0.2) X10*3/uL Abs Immat Gran (auto) (0.00-0.03) X10*3/uL Absolute Neuts (auto) (2.0-8.3) x10*3/uL Absolute Nucleated RBC (0.0-0.012) X10*3/uL Nucleated RBC % (auto) (0.0-0.2) /100WBC Sodium (135-145) mmol/L Potassium (3.3-5.1) mmol/L Chloride (96-108) mmol/L Carbon Dioxide (22-29) mmol/L Anion Gap (12-20) BUN (9-16) mg/dL Creatinine (0.5-1.4) mg/dL Estim Creat Clear Calc Estimated GFR Random Glucose (60-115) mg/dL Calcium (8.4-10.2) mg/dL Magnesium (1.6-2.6) mg/dL Total Bilirubin (0.0-1.0) mg/dL Direct Bilirubin (0.0-0.5) mg/dL AST (5-31) U/L ALT (0-31) U/L Alkaline Phosphatase (39-117) U/L Troponin I High Sens (<3.5-17.0) ng/L Total Protein (6.5-8.0) g/dL Albumin (3.5-5.0) g/dL Urine Color Urine Appearance Urine pH (5.0-9.0) Ur Specific [place] (1.005-1.025) Urine Protein (Neg-Trace) mg/dL Urine Glucose (UA) (Negative) mg/dL Urine Ketones (Negative) mg/dL Urine Blood (Negative) Urine Nitrite (Negative) Ur Leukocyte Esterase (Negative) Urine RBC (0-2) /HPF Urine WBC (0-5) /HPF Ur Squamous Epith Cells (0-2) /HPF Urine Bacteria (None Seen) Hyaline Casts (0-2) /LPF Urine Test (NEGATIVE) CSF Tube Number 3 4 1 CSF Volume 0.5 0.5 ML CSF Appearance CLEAR CLEAR CSF Color COLORLESS COLORLESS CSF WBC 5 5 MM*3 CSF RBC 84 1126 MM*3 CSF Neutrophils 20 25 % CSF Lymphocytes 60 50 % CSF Monocytes % 10 25 % CSF Other Cells % 10 % CSF Appearance (b) Clear, Colorless CSF Glucose 80 mg/dL CSF Total Protein 357.2 H (15-45) mg/dL COVID-19 (SURYA) (Negative) COVID-19 Clin Com 08/22/22 Range/Units 18:46 WBC (4.8-10.8) X10*3/uL RBC (4.20-5.50) X10*6/uL Hgb (12.0-16.0) g/dl Hct (37.0-47.0) % MCV (80.0-98.0) fL MCH (27.0-33.0) pg MCHC (31.0-35.0) g/dl RDW (11.0-16.0) % Plt Count (160-400) X10*3/uL MPV (9.4-12.3) fL Immature Gran % (Auto) (0.0-0.4) % Neut % (Auto) (45-73) % Lymph % (Auto) (20-40) % [place] % (Auto) (2-11) % Eos % (Auto) (0-4) % Baso % (Auto) (0-2) % Lymph # (Auto) (1.2-4.9) X10*3/uL [place] # (Auto) (0.1-1.2) X10*3/uL Eos # (Auto) (0.0-0.4) X10*3/uL Baso # (Auto) (0.0-0.2) X10*3/uL Abs Immat Gran (auto) (0.00-0.03) X10*3/uL Absolute Neuts (auto) (2.0-8.3) x10*3/uL Absolute Nucleated RBC (0.0-0.012) X10*3/uL Nucleated RBC % (auto) (0.0-0.2) /100WBC Sodium (135-145) mmol/L Potassium (3.3-5.1) mmol/L Chloride (96-108) mmol/L Carbon Dioxide (22-29) mmol/L Anion Gap (12-20) BUN (9-16) mg/dL Creatinine (0.5-1.4) mg/dL Estim Creat Clear Calc Estimated GFR Random Glucose (60-115) mg/dL Calcium (8.4-10.2) mg/dL Magnesium (1.6-2.6) mg/dL Total Bilirubin (0.0-1.0) mg/dL Direct Bilirubin (0.0-0.5) mg/dL AST (5-31) U/L ALT (0-31) U/L Alkaline Phosphatase (39-117) U/L Troponin I High Sens 4.8 (<3.5-17.0) ng/L Total Protein (6.5-8.0) g/dL Albumin (3.5-5.0) g/dL Urine Color Urine Appearance Urine pH (5.0-9.0) Ur Specific [place] (1.005-1.025) Urine Protein (Neg-Trace) mg/dL Urine Glucose (UA) (Negative) mg/dL Urine Ketones (Negative) mg/dL Urine Blood (Negative) Urine Nitrite (Negative) Ur Leukocyte Esterase (Negative) Urine RBC (0-2) /HPF Urine WBC (0-5) /HPF Ur Squamous Epith Cells (0-2) /HPF Urine Bacteria (None Seen) Hyaline Casts (0-2) /LPF Urine Test (NEGATIVE) CSF Tube Number CSF Volume ML CSF Appearance CSF Color CSF WBC MM*3 CSF RBC MM*3 CSF Neutrophils % CSF Lymphocytes % CSF Monocytes % % CSF Other Cells % % CSF Appearance (b) CSF Glucose mg/dL CSF Total Protein (15-45) mg/dL COVID-19 (SURYA) (Negative) COVID-19 Clin Com <DENIS Riojas - Last Filed: 08/22/22 18:06> Lab Results 08/22/22 08/22/22 08/22/22 Range/Units 14:17 14:17 14:17 WBC (4.8-10.8) X10*3/uL RBC (4.20-5.50) X10*6/uL Hgb (12.0-16.0) g/dl Hct (37.0-47.0) % MCV (80.0-98.0) fL MCH (27.0-33.0) pg MCHC (31.0-35.0) g/dl RDW (11.0-16.0) % Plt Count (160-400) X10*3/uL MPV (9.4-12.3) fL Immature Gran % (Auto) (0.0-0.4) % Neut % (Auto) (45-73) % Lymph % (Auto) (20-40) % [place] % (Auto) (2-11) % Eos % (Auto) (0-4) % Baso % (Auto) (0-2) % Lymph # (Auto) (1.2-4.9) X10*3/uL [place] # (Auto) (0.1-1.2) X10*3/uL Eos # (Auto) (0.0-0.4) X10*3/uL Baso # (Auto) (0.0-0.2) X10*3/uL Abs Immat Gran (auto) (0.00-0.03) X10*3/uL Absolute Neuts (auto) (2.0-8.3) x10*3/uL Absolute Nucleated RBC (0.0-0.012) X10*3/uL Nucleated RBC % (auto) (0.0-0.2) /100WBC Sodium (135-145) mmol/L Potassium (3.3-5.1) mmol/L Chloride (96-108) mmol/L Carbon Dioxide (22-29) mmol/L Anion Gap (12-20) BUN (9-16) mg/dL Creatinine (0.5-1.4) mg/dL Estim Creat Clear Calc Estimated GFR Random Glucose (60-115) mg/dL Calcium (8.4-10.2) mg/dL Magnesium (1.6-2.6) mg/dL Total Bilirubin (0.0-1.0) mg/dL Direct Bilirubin (0.0-0.5) mg/dL AST (5-31) U/L ALT (0-31) U/L Alkaline Phosphatase (39-117) U/L Troponin I High Sens (<3.5-17.0) ng/L Total Protein (6.5-8.0) g/dL Albumin (3.5-5.0) g/dL Urine Color Yellow Urine Appearance Cloudy Urine pH 6.0 (5.0-9.0) Ur Specific [place] <= 1.005 (1.005-1.025) Urine Protein Negative (Neg-Trace) mg/dL Urine Glucose (UA) Negative (Negative) mg/dL Urine Ketones Negative (Negative) mg/dL Urine Blood Small (1+) H (Negative) Urine Nitrite Negative (Negative) Ur Leukocyte Esterase Large (3+) H (Negative) Urine RBC 0-2 (0-2) /HPF Urine WBC 21-50 H (0-5) /HPF Ur Squamous Epith Cells 6-10 (0-2) /HPF Urine Bacteria 2+ (None Seen) Hyaline Casts 0-2 (0-2) /LPF Urine Test NEGATIVE (NEGATIVE) CSF Tube Number CSF Volume ML CSF Appearance CSF Color CSF WBC MM*3 CSF RBC MM*3 CSF Neutrophils % CSF Lymphocytes % CSF Monocytes % % CSF Other Cells % % CSF Appearance (b) CSF Glucose mg/dL CSF Total Protein (15-45) mg/dL COVID-19 (SURYA) Negative (Negative) COVID-19 Clin Com See Note 08/22/22 08/22/22 08/22/22 Range/Units 15:41 15:41 15:41 WBC 7.2 (4.8-10.8) X10*3/uL RBC 4.12 L (4.20-5.50) X10*6/uL Hgb 12.6 (12.0-16.0) g/dl Hct 37.4 (37.0-47.0) % MCV 90.8 (80.0-98.0) fL MCH 30.6 (27.0-33.0) pg MCHC 33.7 (31.0-35.0) g/dl RDW 12.6 (11.0-16.0) % Plt Count 184 (160-400) X10*3/uL MPV 11.5 (9.4-12.3) fL Immature Gran % (Auto) 0.3 (0.0-0.4) % Neut % (Auto) 69.6 (45-73) % Lymph % (Auto) 22.0 (20-40) % [place] % (Auto) 5.9 (2-11) % Eos % (Auto) 1.8 (0-4) % Baso % (Auto) 0.4 (0-2) % Lymph # (Auto) 1.6 (1.2-4.9) X10*3/uL [place] # (Auto) 0.4 (0.1-1.2) X10*3/uL Eos # (Auto) 0.1 (0.0-0.4) X10*3/uL Baso # (Auto) 0.0 (0.0-0.2) X10*3/uL Abs Immat Gran (auto) 0.02 (0.00-0.03) X10*3/uL Absolute Neuts (auto) 5.0 (2.0-8.3) x10*3/uL Absolute Nucleated RBC 0.000 (0.0-0.012) X10*3/uL Nucleated RBC % (auto) 0.0 (0.0-0.2) /100WBC Sodium 141 (135-145) mmol/L Potassium 4.2 (3.3-5.1) mmol/L Chloride 112 H (96-108) mmol/L Carbon Dioxide 22 (22-29) mmol/L Anion Gap 11 L (12-20) BUN 5 L (9-16) mg/dL Creatinine 0.65 (0.5-1.4) mg/dL Estim Creat Clear Calc 106.1 Estimated GFR > 60 Random Glucose 96 (60-115) mg/dL Calcium 7.8 L D (8.4-10.2) mg/dL Magnesium 1.7 (1.6-2.6) mg/dL Total Bilirubin 0.4 (0.0-1.0) mg/dL Direct Bilirubin 0.2 (0.0-0.5) mg/dL AST 14 (5-31) U/L ALT 16 (0-31) U/L Alkaline Phosphatase 54 (39-117) U/L Troponin I High Sens 5.9 (<3.5-17.0) ng/L Total Protein 6.2 L (6.5-8.0) g/dL Albumin 3.8 (3.5-5.0) g/dL Urine Color Urine Appearance Urine pH (5.0-9.0) Ur Specific [place] (1.005-1.025) Urine Protein (Neg-Trace) mg/dL Urine Glucose (UA) (Negative) mg/dL Urine Ketones (Negative) mg/dL Urine Blood (Negative) Urine Nitrite (Negative) Ur Leukocyte Esterase (Negative) Urine RBC (0-2) /HPF Urine WBC (0-5) /HPF Ur Squamous Epith Cells (0-2) /HPF Urine Bacteria (None Seen) Hyaline Casts (0-2) /LPF Urine Test (NEGATIVE) CSF Tube Number CSF Volume ML CSF Appearance CSF Color CSF WBC MM*3 CSF RBC MM*3 CSF Neutrophils % CSF Lymphocytes % CSF Monocytes % % CSF Other Cells % % CSF Appearance (b) CSF Glucose mg/dL CSF Total Protein (15-45) mg/dL COVID-19 (SURYA) (Negative) COVID-19 Clin Com 08/22/22 08/22/22 08/22/22 Range/Units 17:12 17:12 17:12 WBC (4.8-10.8) X10*3/uL RBC (4.20-5.50) X10*6/uL Hgb (12.0-16.0) g/dl Hct (37.0-47.0) % MCV (80.0-98.0) fL MCH (27.0-33.0) pg MCHC (31.0-35.0) g/dl RDW (11.0-16.0) % Plt Count (160-400) X10*3/uL MPV (9.4-12.3) fL Immature Gran % (Auto) (0.0-0.4) % Neut % (Auto) (45-73) % Lymph % (Auto) (20-40) % [place] % (Auto) (2-11) % Eos % (Auto) (0-4) % Baso % (Auto) (0-2) % Lymph # (Auto) (1.2-4.9) X10*3/uL [place] # (Auto) (0.1-1.2) X10*3/uL Eos # (Auto) (0.0-0.4) X10*3/uL Baso # (Auto) (0.0-0.2) X10*3/uL Abs Immat Gran (auto) (0.00-0.03) X10*3/uL Absolute Neuts (auto) (2.0-8.3) x10*3/uL Absolute Nucleated RBC (0.0-0.012) X10*3/uL Nucleated RBC % (auto) (0.0-0.2) /100WBC Sodium (135-145) mmol/L Potassium (3.3-5.1) mmol/L Chloride (96-108) mmol/L Carbon Dioxide (22-29) mmol/L Anion Gap (12-20) BUN (9-16) mg/dL Creatinine (0.5-1.4) mg/dL Estim Creat Clear Calc Estimated GFR Random Glucose (60-115) mg/dL Calcium (8.4-10.2) mg/dL Magnesium (1.6-2.6) mg/dL Total Bilirubin (0.0-1.0) mg/dL Direct Bilirubin (0.0-0.5) mg/dL AST (5-31) U/L ALT (0-31) U/L Alkaline Phosphatase (39-117) U/L Troponin I High Sens (<3.5-17.0) ng/L Total Protein (6.5-8.0) g/dL Albumin (3.5-5.0) g/dL Urine Color Urine Appearance Urine pH (5.0-9.0) Ur Specific [place] (1.005-1.025) Urine Protein (Neg-Trace) mg/dL Urine Glucose (UA) (Negative) mg/dL Urine Ketones (Negative) mg/dL Urine Blood (Negative) Urine Nitrite (Negative) Ur Leukocyte Esterase (Negative) Urine RBC (0-2) /HPF Urine WBC (0-5) /HPF Ur Squamous Epith Cells (0-2) /HPF Urine Bacteria (None Seen) Hyaline Casts (0-2) /LPF Urine Test (NEGATIVE) CSF Tube Number 3 4 1 CSF Volume 0.5 0.5 ML CSF Appearance CLEAR CLEAR CSF Color COLORLESS COLORLESS CSF WBC 5 5 MM*3 CSF RBC 84 1126 MM*3 CSF Neutrophils 20 25 % CSF Lymphocytes 60 50 % CSF Monocytes % 10 25 % CSF Other Cells % 10 % CSF Appearance (b) Clear, Colorless CSF Glucose 80 mg/dL CSF Total Protein 357.2 H (15-45) mg/dL COVID-19 (SURYA) (Negative) COVID-19 Clin Com 08/22/22 Range/Units 18:46 WBC (4.8-10.8) X10*3/uL RBC (4.20-5.50) X10*6/uL Hgb (12.0-16.0) g/dl Hct (37.0-47.0) % MCV (80.0-98.0) fL MCH (27.0-33.0) pg MCHC (31.0-35.0) g/dl RDW (11.0-16.0) % Plt Count (160-400) X10*3/uL MPV (9.4-12.3) fL Immature Gran % (Auto) (0.0-0.4) % Neut % (Auto) (45-73) % Lymph % (Auto) (20-40) % [place] % (Auto) (2-11) % Eos % (Auto) (0-4) % Baso % (Auto) (0-2) % Lymph # (Auto) (1.2-4.9) X10*3/uL [place] # (Auto) (0.1-1.2) X10*3/uL Eos # (Auto) (0.0-0.4) X10*3/uL Baso # (Auto) (0.0-0.2) X10*3/uL Abs Immat Gran (auto) (0.00-0.03) X10*3/uL Absolute Neuts (auto) (2.0-8.3) x10*3/uL Absolute Nucleated RBC (0.0-0.012) X10*3/uL Nucleated RBC % (auto) (0.0-0.2) /100WBC Sodium (135-145) mmol/L Potassium (3.3-5.1) mmol/L Chloride (96-108) mmol/L Carbon Dioxide (22-29) mmol/L Anion Gap (12-20) BUN (9-16) mg/dL Creatinine (0.5-1.4) mg/dL Estim Creat Clear Calc Estimated GFR Random Glucose (60-115) mg/dL Calcium (8.4-10.2) mg/dL Magnesium (1.6-2.6) mg/dL Total Bilirubin (0.0-1.0) mg/dL Direct Bilirubin (0.0-0.5) mg/dL AST (5-31) U/L ALT (0-31) U/L Alkaline Phosphatase (39-117) U/L Troponin I High Sens 4.8 (<3.5-17.0) ng/L Total Protein (6.5-8.0) g/dL Albumin (3.5-5.0) g/dL Urine Color Urine Appearance Urine pH (5.0-9.0) Ur Specific [place] (1.005-1.025) Urine Protein (Neg-Trace) mg/dL Urine Glucose (UA) (Negative) mg/dL Urine Ketones (Negative) mg/dL Urine Blood (Negative) Urine Nitrite (Negative) Ur Leukocyte Esterase (Negative) Urine RBC (0-2) /HPF Urine WBC (0-5) /HPF Ur Squamous Epith Cells (0-2) /HPF Urine Bacteria (None Seen) Hyaline Casts (0-2) /LPF Urine Test (NEGATIVE) CSF Tube Number CSF Volume ML CSF Appearance CSF Color CSF WBC MM*3 CSF RBC MM*3 CSF Neutrophils % CSF Lymphocytes % CSF Monocytes % % CSF Other Cells % % CSF Appearance (b) CSF Glucose mg/dL CSF Total Protein (15-45) mg/dL COVID-19 (SURYA) (Negative) COVID-19 Clin Com <DENIS Mills - Last Filed: 08/22/22 23:09> ECG Data Attestation: I personally reviewed and interpreted this ECG as follows: <DENIS Riojas - Last Filed: 08/22/22 18:06> ECG interpretation date: 08/22/22 <DENIS Riojas - Last Filed: 08/22/22 18:06> ECG interpretation time: 13:38 <DENIS Riojas - Last Filed: 08/22/22 18:06> Interpretation: EKG normal sinus rhythm at a rate is 74. QRS 92. No STEMI. Nonischemic. <DENIS Riojas - Last Filed: 08/22/22 18:06> Procedures Lumbar Puncture Time Out Performed: Yes <DENIS Riojas - Last Filed: 08/22/22 18:06> Patient Position: upright <DENIS Riojas - Last Filed: 08/22/22 18:06> Skin Prep: Povidone-Iodine 1% <DENIS Riojas - Last Filed: 08/22/22 18:06> Local Anesthetic: lidocaine 1% <DENIS Riojas - Last Filed: 08/22/22 18:06> Amount of anesthesia used (mL): 4 <DENIS Riojas - Last Filed: 08/22/22 18:06> Spinal Needle Gauge: 22G <DENIS Riojas - Last Filed: 08/22/22 18:06> Interspace Used: L4-L5 <DENIS Riojas - Last Filed: 08/22/22 18:06> Fluid Initially Obtained: clear <DENIS Riojas - Last Filed: 08/22/22 18:06> Complications: none <DENIS Riojas - Last Filed: 08/22/22 18:06> Critical Care Time Critical Care Time Critical Care Time: Yes <DENIS Riojas - Last Filed: 08/22/22 18:06> Total Critical Care Time: 35 <DENIS Riojas - Last Filed: 08/22/22 18:06> Attestation: I have personally provided critical care time exclusive of time spent on separately billable procedures. Time includes review of lab data, radiology results, discussion with consultants, and monitoring for potential decompensation. Intervention performed as documented. <DENIS Riojas - Last Filed: 08/22/22 18:06> I have personally provided critical care time exclusive of time spent on separately billable procedures. Time includes review of lab data, radiology results, discussion with consultants, and monitoring for potential decompensation. Intervention performed as documented. I attest to this time spent taking care of the patient, obtaining history, physical, reviewing labs, imaging, speaking to my attending, speaking to specialist. <DENIS Mills - Last Filed: 08/22/22 23:09> Discharge Plan Discharge Clinical Impression: Dizziness, Orthostasis, Unsteady gait <DENIS Riojas - Last Filed: 08/22/22 18:06> Patient Disposition: Admitted as Observation <DENIS Riojas - Last Filed: 08/22/22 18:06>
[2022-08-22] MEDS: Acetaminophen 325 MG TABLET 650 MG PO (12:22)
[2022-08-22] MEDS: Meclizine HCl 25 MG TABLET PO (12:23)
--- NOTE | 2022-08-22 12:32 | PC.NURSE ---
mri screening form complete, pt to go to mri
[2022-08-22] MEDS: Midazolam HCl/PF 2 MG/2 ML VIAL 1 MG IVPUSH (12:56)
--- NOTE | 2022-08-22 12:57 | PC.NURSE ---
1MG VERSED ADMINISTERED AT MRI FOR PATIENTS ANXIETY
[2022-08-22] MEDS: ondansetron HCL 4 MG/2 ML VIAL IVPUSH (13:24)
[2022-08-22] MEDS: 0.9 % Sodium Chloride 1,000 ML 999 ML IV ×3 (13:24→20:27)
[2022-08-22] MEDS: diphenhydrAMINE HCL 50 MG/ML VIAL 12.5 MG IVPUSH ×2 (13:24→17:18)
[2022-08-22 14:27] LABS: Appearance Urine Cloudy; Color Urine Yellow; Glucose Urine UA Negative (Negative); Leukocyte Esterase Urine Large (3+) (Negative); Nitrite Urine Negative (Negative); Specific Gravity - Urine <= 1.005 (1.005-1.025); UMIC TRIGGER UACC YES; Urine Blood Small (1+) (Negative); Urine Ketones Negative (Negative); Urine Protein Negative (Neg-Trace)
[2022-08-22 14:29] LABS: UPreg QC Valid YES; Urine Pregnancy NEGATIVE (NEGATIVE)
[2022-08-22 14:38] LABS: COVID-19 Test Negative (Negative); IDNOW Serial# 9DD0AD1C
[2022-08-22 14:44] LABS: Bacteria Urine 2+ (None Seen); Hyaline Casts Urine 0-2 /LPF (0-2); RBC Urine 0-2 /HPF (0-2); UACC Culture Trigger YES; WBC Urine 21-50 /HPF (0-5)
--- NOTE | 2022-08-22 14:45 | PC.NURSE ---
phlebotomy called to obtain labs
--- NOTE | 2022-08-22 15:06 | PC.NURSE ---
pt sleeping, wakes to verbal stimulus, vss, family at bedside, ivf completed, pt awaiting phlebotomy to draw labs, will continue to monitor
[2022-08-22 15:48] LABS: MANUAL DIFF FLAG NO
[2022-08-22 15:50] LABS: White Blood Count 7.2 X10*3/uL (4.8-10.8)
[2022-08-22 15:51] LABS: Basophils Percent Auto 0.4 % (0-2); Eosinophils Absolute Auto 0.1 X10*3/uL (0.0-0.4); Eosinophils Percent Auto 1.8 % (0-4); Hematocrit 37.4 % (37.0-47.0); Hemoglobin 12.6 g/dl (12.0-16.0); Imm Gran Abs Auto 0.02 X10*3/uL (0.00-0.03); Imm Gran Pct Auto 0.3 % (0.0-0.4); Lymphocytes Absolute Auto 1.6 X10*3/uL (1.2-4.9); Mean Corpuscular HGB Conc 33.7 g/dl (31.0-35.0); Mean Corpuscular Hemoglobin 30.6 pg (27.0-33.0); Mean Corpuscular Volume 90.8 fL (80.0-98.0); Mean Platelet Volume 11.5 fL (9.4-12.3); Monocytes Absolute Auto 0.4 X10*3/uL (0.1-1.2); Monocytes Percent Auto 5.9 % (2-11); Neutrophils Percent Auto 69.6 % (45-73); Platelet Count 184 X10*3/uL (160-400); Red Blood Count 4.12 X10*6/uL (4.20-5.50); Red Cell Distribution Width 12.6 % (11.0-16.0)
[2022-08-22 16:04] LABS: Alanine Aminotransferase 16 U/L (0-31); Albumin Level 3.8 g/dL (3.5-5.0); Alkaline Phosphatase 54 U/L (39-117); Anion Gap 11 (12-20); Aspartate Amino Transferase 14 U/L (5-31); Bilirubin Direct 0.2 mg/dL (0.0-0.5); Bilirubin Total 0.4 mg/dL (0.0-1.0); Blood Urea Nitrogen 5 mg/dL (9-16); Calcium 7.8 mg/dL (8.4-10.2); Carbon Dioxide 22 mmol/L (22-29); Chloride 112 mmol/L (96-108); Creatinine Clr Calc Pharmacy 106.1; Estimated Glomerular Filt Rate > 60; Glucose Random 96 mg/dL (60-115); Magnesium 1.7 mg/dL (1.6-2.6); Potassium 4.2 mmol/L (3.3-5.1); Sodium 141 mmol/L (135-145); Total Protein 6.2 g/dL (6.5-8.0)
[2022-08-22 16:08] LABS: Troponin-I High Sensitivity 5.9 ng/L (<3.5-17.0)
--- NOTE | 2022-08-22 16:29 | PC.NURSE ---
PATIENT HAD COUPLE OF CRACKERS PER PROVIDER REQUEST .
--- NOTE | 2022-08-22 17:08 | PC.NURSE ---
THIS PCT SET UP AND ASSIST DENIS CUMMINGS WITH PATIENT LUMBAR PUNCTURE .
[2022-08-22] MEDS: LORazepam 1 MG TABLET PO (17:19)
--- NOTE | 2022-08-22 17:24 | PC.NURSE ---
Pt meds administered as order.
[2022-08-22 17:43] LABS: CSF Appearance Clear, Colorless; CSF Tube # 3
[2022-08-22] MEDS: Lidocaine HCl 1 % MPF 5 ML VIAL INFILTRATI (17:47)
[2022-08-22 17:58] LABS: Glucose CSF 80 mg/dL
[2022-08-22 18:13] LABS: Total Protein CSF 357.2 mg/dL (15-45)
[2022-08-22 18:58] LABS: Appearance CSF CLEAR; CSF Tube # 1; CSF Volume 0.5 ML; Color CSF COLORLESS
[2022-08-22 18:59] LABS: Neutrophils CSF 25 %; Red Blood Cell CSF 1126 MM*3; White Blood Cell CSF 5 MM*3
[2022-08-22 19:00] LABS: CSF Monos 25 %; Lymphocytes CSF 50 %
--- NOTE | 2022-08-22 19:07 | PC.NURSE ---
PATIENT HAD A [employer] SANDWICH AND RANJAN RAVIN FOR SNACK .
[2022-08-22 19:15] LABS: Troponin-I High Sensitivity 4.8 ng/L (<3.5-17.0)
--- NOTE | 2022-08-22 19:24 | PC.NURSE ---
patient a&ox3, c/o extreme dizziness, vss, no c/o pain or discomfort, pt given po per her request, family at bedside, call castelan within reach, will continue to monitor
[2022-08-22 20:05] LABS: Appearance CSF CLEAR; CSF Monos 10 %; CSF Other Cells % 10 %; CSF Tube # 4; CSF Volume 0.5 ML; Color CSF COLORLESS; Lymphocytes CSF 60 %; Neutrophils CSF 20 %; Red Blood Cell CSF 84 MM*3; White Blood Cell CSF 5 MM*3
--- NOTE | 2022-08-22 20:27 | PC.NURSE ---
patient a&ox3,pt orthostats were positive-provider is aware, ivf hung per order, pt c/o continuous dizziness, call castelan within reach, will continue to monitor
--- NOTE | 2022-08-22 21:34 | PC.NURSE ---
Pt IVF are still running.
--- NOTE | 2022-08-22 23:01 | PM.IMHP ---
History of Present Illness Date of Service: 08/22/22 Chief Complaint: vertigo 31-year-old female with past medical history of migraines presents to the hospital with complaints of severe dizziness. Patient reports that her symptoms started with a migraine on 09 15, she took Excedrin which resolved her symptoms but she woke up in the morning with severe dizziness and lightheadedness as well as vertigo. She reports that she has had severe side vertigo to the point that she cannot ambulate, and now she is dependent on her boyfriend for all her ADLs. She reports that when she walks she has to hold onto rivera or to her boyfriend otherwise she would fall or pass out. She reports no falling, no recent trauma, no headache, reports no change in vision, no weakness numbness or tingling, her boyfriend noted slow speech with no slurring. She reports no numbness or tingling in her upper or lower extremities. She denies any neck pain, no chest pain, no abdominal pain nausea or vomiting, no diarrhea constipation, no urinary symptoms and no lower extremity edema. Of note patient was seen for the same on 08/17, was given meclizine, reports no relief with meclizine. Vitals on arrival were unremarkable Labs reviewed, show unremarkable findings, UA positive for leukocyte Estrace and WBC, patient denies any symptoms LP was done which showed large amount of protein of 357, a large amount of RBC. MRI of the brain showed no acute infarct, mass lesion, or evidence of hydrocephalus, there is mild non suppression of FLAIR signal seen within the high frontal parietal sulci, this finding is nonspecific and could be artifactual or related to trace subarachnoid hemorrhage or other causes of meningeal inflammation. Case was discussed with Neurology, recommended CT angiogram of head and neck and admission, head and neck CT angiogram shows no acute intracranial abnormality including hemorrhage mass effect hydrocephalus or acute a territory edematous infarct, no arterial high-grade stenosis or large vessel occlusion and then head or neck, and embolus craniocervical junction Patient will be admitted for further evaluation Review of Systems Review of Systems: Yes all other systems are reviewed and are negative [facility] Medical History (Updated 08/23/22 @ 06:18 by Daisha Sutherland MD) Hypothyroidism Migraines Family History (Updated 08/23/22 @ 06:14 by Daisha Sutherland MD) Mother Vertigo Surgical History (Updated 08/23/22 @ 06:15 by Daisha Sutherland MD) No pertinent past surgical history Social History Patient Tobacco Use Status: Never used Tobacco Use of substances other than those prescribed or required for medical reasons: No Advance Directives: No Advance Directives Information Provided: No Patient : No Meds Allergies Allergy/AdvReac Type Severity Reaction Status Date / Time hydrocodone AdvReac Nausea and Verified 08/17/22 09:39 Vomiting oxycodone AdvReac Nausea and Uncoded 08/17/22 09:39 Vomiting Physical Exam Vital Signs and Narrative: Vital Signs: Last Vital Signs Temp 97.8 F 08/22/22 21:45 Pulse 103 H 08/22/22 21:45 Resp 16 08/22/22 21:45 BP 128/79 08/22/22 21:45 Pulse Ox 100 08/22/22 21:45 O2 Del Method 08/22/22 21:45 BMI result Body Mass Index 26.4 Const: General: cooperative and no acute distress Orientation/consciousness: patient oriented x3 Eyes: General: appearance normal, both eyes and all related structures Pupils: Equal, round and reactive pupils present Resp: Effort & Inspection: normal respiratory effort Auscultation: clear to auscultation bilaterally Cardio: Rate: regular rate Rhythm: regular rhythm GI: Palpation (GI): Soft to palpation Auscultation: normal bowel sounds Skin: General skin exam: no rashes or lesions noted Neuro: Other: Her speech does appear to be slow, but no slurring her words, comprehensible, no neurological deficits noted She has was stepping gait General: patient oriented x3 Cranial nerves: Yes Equal, round and reactive pupils present Cognition (Neuro): normal cognition Extrem: General: Yes normal to inspection and Yes no pedal edema Results Labs CBC and Chem 7: 08/22/22 15:41 08/22/22 15:41 Labs: Laboratory Results - last 24 hr 08/22/22 08/22/22 08/22/22 14:17 14:17 14:17 MCV MCH MCHC RDW Plt Count MPV Immature Gran % (Auto) Neut % (Auto) Lymph % (Auto) [place] % (Auto) Eos % (Auto) Baso % (Auto) Lymph # (Auto) [place] # (Auto) Eos # (Auto) Baso # (Auto) Abs Immat Gran (auto) Absolute Neuts (auto) Absolute Nucleated RBC Nucleated RBC % (auto) Anion Gap Estim Creat Clear Calc Estimated GFR Random Glucose Calcium Magnesium Total Bilirubin Direct Bilirubin AST ALT Alkaline Phosphatase Troponin I High Sens Total Protein Albumin Urine Color Yellow Urine Appearance Cloudy Urine pH 6.0 Ur Specific [place] <= 1.005 Urine Protein Negative Urine Glucose (UA) Negative Urine Ketones Negative Urine Blood Small (1+) H Urine Nitrite Negative Ur Leukocyte Esterase Large (3+) H Urine RBC 0-2 Urine WBC 21-50 H Ur Squamous Epith Cells 6-10 Urine Bacteria 2+ Hyaline Casts 0-2 Urine Test NEGATIVE CSF Tube Number CSF Volume CSF Appearance CSF Color CSF WBC CSF RBC CSF Neutrophils CSF Lymphocytes CSF Monocytes % CSF Other Cells % CSF Appearance (b) CSF Glucose CSF Total Protein COVID-19 (SURYA) Negative COVID-19 Clin Com See Note 08/22/22 08/22/22 08/22/22 15:41 15:41 15:41 MCV 90.8 MCH 30.6 MCHC 33.7 RDW 12.6 Plt Count 184 MPV 11.5 Immature Gran % (Auto) 0.3 Neut % (Auto) 69.6 Lymph % (Auto) 22.0 [place] % (Auto) 5.9 Eos % (Auto) 1.8 Baso % (Auto) 0.4 Lymph # (Auto) 1.6 [place] # (Auto) 0.4 Eos # (Auto) 0.1 Baso # (Auto) 0.0 Abs Immat Gran (auto) 0.02 Absolute Neuts (auto) 5.0 Absolute Nucleated RBC 0.000 Nucleated RBC % (auto) 0.0 Anion Gap 11 L Estim Creat Clear Calc 106.1 Estimated GFR > 60 Random Glucose 96 Calcium 7.8 L D Magnesium 1.7 Total Bilirubin 0.4 Direct Bilirubin 0.2 AST 14 ALT 16 Alkaline Phosphatase 54 Troponin I High Sens 5.9 Total Protein 6.2 L Albumin 3.8 Urine Color Urine Appearance Urine pH Ur Specific [place] Urine Protein Urine Glucose (UA) Urine Ketones Urine Blood Urine Nitrite Ur Leukocyte Esterase Urine RBC Urine WBC Ur Squamous Epith Cells Urine Bacteria Hyaline Casts Urine Test CSF Tube Number CSF Volume CSF Appearance CSF Color CSF WBC CSF RBC CSF Neutrophils CSF Lymphocytes CSF Monocytes % CSF Other Cells % CSF Appearance (b) CSF Glucose CSF Total Protein COVID-19 (SURYA) COVID-19 Clin Com 08/22/22 08/22/22 08/22/22 17:12 17:12 17:12 MCV MCH MCHC RDW Plt Count MPV Immature Gran % (Auto) Neut % (Auto) Lymph % (Auto) [place] % (Auto) Eos % (Auto) Baso % (Auto) Lymph # (Auto) [place] # (Auto) Eos # (Auto) Baso # (Auto) Abs Immat Gran (auto) Absolute Neuts (auto) Absolute Nucleated RBC Nucleated RBC % (auto) Anion Gap Estim Creat Clear Calc Estimated GFR Random Glucose Calcium Magnesium Total Bilirubin Direct Bilirubin AST ALT Alkaline Phosphatase Troponin I High Sens Total Protein Albumin Urine Color Urine Appearance Urine pH Ur Specific [place] Urine Protein Urine Glucose (UA) Urine Ketones Urine Blood Urine Nitrite Ur Leukocyte Esterase Urine RBC Urine WBC Ur Squamous Epith Cells Urine Bacteria Hyaline Casts Urine Test CSF Tube Number 3 4 1 CSF Volume 0.5 0.5 CSF Appearance CLEAR CLEAR CSF Color COLORLESS COLORLESS CSF WBC 5 5 CSF RBC 84 1126 CSF Neutrophils 20 25 CSF Lymphocytes 60 50 CSF Monocytes % 10 25 CSF Other Cells % 10 CSF Appearance (b) Clear, Colorless CSF Glucose 80 CSF Total Protein 357.2 H COVID-19 (SURYA) COVID-19 Clin Com 08/22/22 18:46 MCV MCH MCHC RDW Plt Count MPV Immature Gran % (Auto) Neut % (Auto) Lymph % (Auto) [place] % (Auto) Eos % (Auto) Baso % (Auto) Lymph # (Auto) [place] # (Auto) Eos # (Auto) Baso # (Auto) Abs Immat Gran (auto) Absolute Neuts (auto) Absolute Nucleated RBC Nucleated RBC % (auto) Anion Gap Estim Creat Clear Calc Estimated GFR Random Glucose Calcium Magnesium Total Bilirubin Direct Bilirubin AST ALT Alkaline Phosphatase Troponin I High Sens 4.8 Total Protein Albumin Urine Color Urine Appearance Urine pH Ur Specific [place] Urine Protein Urine Glucose (UA) Urine Ketones Urine Blood Urine Nitrite Ur Leukocyte Esterase Urine RBC Urine WBC Ur Squamous Epith Cells Urine Bacteria Hyaline Casts Urine Test CSF Tube Number CSF Volume CSF Appearance CSF Color CSF WBC CSF RBC CSF Neutrophils CSF Lymphocytes CSF Monocytes % CSF Other Cells % CSF Appearance (b) CSF Glucose CSF Total Protein COVID-19 (SURYA) COVID-19 Clin Com Imaging Radiologist's Impressions: Impressions Brain MRI 08/22/22 13:10 IMPRESSION: No acute infarct, mass lesion, or evidence of hydrocephalus. Mild nonsuppression of FLAIR signal seen within the high frontal parietal sulci. This finding is nonspecific and could be artifactual or related to trace subarachnoid hemorrhage or other causes of meningeal inflammation. If clinical signs of meningeal inflammation are present, consider lumbar puncture. Head/Neck CTA 08/22/22 21:25 IMPRESSION: 1. No acute intracranial abnormality including hemorrhage, mass effect, hydrocephalus, or acute territorial edematous infarction. 2. No arterial high-grade stenosis or large vessel occlusion in the head or neck. 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 Assessment and Plan (1) Unsteady gait: Status: Acute (2) Vertigo: Status: Acute Plan 31-year-old female with past medical history of hypothyroidism as well as migraine headaches presents to the hospital with severe vertigo # vertigo - although MRI of the brain showed possible abnormality, there was no abnormality seen on CT angiogram head and neck - this could be related to her migraine headaches - neurology consulted - at this time admit for further evaluation # hypothyroidism - patient reports noncompliance - less TSH of 4.71 on 08/17 - recommend continue home medications- patient does not know dosage # migraine headache - p.r.n. Tylenol DVT prophylaxis: Early ambulation Quality Stroke Does the patient have a stroke diagnosis?: No VTE Prior VTE?: No VTE Risk Level:: Medical - low VTE Device Contraindication: N/A - Device Ordered VTE Drug Contraindication: Treatment Not Indicated
[2022-08-23] VITALS (8 sets, daily range): BP systolic 93–162; BP diastolic 52–87; PULSE 64–92; RESP 14–20; TEMP 36.6–37.3; O2SAT 96–100
[2022-08-23] MEDS: Acetaminophen 325 MG TABLET 650 MG PO ×3 (00:48→18:42)
--- NOTE | 2022-08-23 01:07 | PC.NURSE ---
pt resting comfortably on stretcher. boyfriend at bedside. IV fluids finished, pt on monitor technician . will continue to monitor.
[2022-08-23 06:51] LABS: MANUAL DIFF FLAG NO
[2022-08-23 06:57] LABS: Basophils Absolute Auto 0.1 X10*3/uL (0.0-0.2); Basophils Percent Auto 0.8 % (0-2); Eosinophils Absolute Auto 0.2 X10*3/uL (0.0-0.4); Eosinophils Percent Auto 3.1 % (0-4); Hemoglobin 11.4 g/dl (12.0-16.0); Imm Gran Abs Auto 0.02 X10*3/uL (0.00-0.03); Imm Gran Pct Auto 0.3 % (0.0-0.4); Lymphocytes Absolute Auto 2.5 X10*3/uL (1.2-4.9); Lymphocytes Percent Auto 38.5 % (20-40); Mean Corpuscular HGB Conc 33.5 g/dl (31.0-35.0); Mean Corpuscular Hemoglobin 30.5 pg (27.0-33.0); Mean Corpuscular Volume 90.9 fL (80.0-98.0); Mean Platelet Volume 12.5 fL (9.4-12.3); Monocytes Absolute Auto 0.5 X10*3/uL (0.1-1.2); Monocytes Percent Auto 8.3 % (2-11); Neutrophils Absolute Auto 3.2 x10*3/uL (2.0-8.3); Platelet Count 181 X10*3/uL (160-400); Red Blood Count 3.74 X10*6/uL (4.20-5.50); Red Cell Distribution Width 12.9 % (11.0-16.0); White Blood Count 6.5 X10*3/uL (4.8-10.8)
[2022-08-23 07:28] LABS: Anion Gap 15 (12-20); Blood Urea Nitrogen 5 mg/dL (9-16); Calcium 7.8 mg/dL (8.4-10.2); Carbon Dioxide 20 mmol/L (22-29); Chloride 109 mmol/L (96-108); Creatinine Clr Calc Pharmacy 125.3; Estimated Glomerular Filt Rate > 60; Glucose Random 94 mg/dL (60-115); Potassium 3.7 mmol/L (3.3-5.1); Sodium 140 mmol/L (135-145)
--- NOTE | 2022-08-23 08:09 | PHA.MEDREC ---
Pharmacy Consult ? Medication Reconciliation Pharmacy has completed the medication reconciliation. Patient and family member confirmed meds. Family member reported patient is no longer taking levothyoxine but needs to get back on it. Rachel Patel, ArleneD
[2022-08-23] MEDS: 0.9 % Sodium Chloride Flush 3 ML SYRINGE IVFLUSH ×2 (09:04→19:42)
[2022-08-23] MEDS: Lactated Ringers 1,000 ML 100 ML IVCONT ×2 (09:09→18:42)
--- NOTE | 2022-08-23 11:45 | PC.NURSE ---
PT A&Ox3, denies pain, reported dizziness. Ambulates to BR with steady gait. Dr. Gross at bedside. Pending Neuro consult. Will continue to observe.
--- NOTE | 2022-08-23 16:25 | PM.NEUROCN ---
History of Present Illness Data of Consult Service Date: 08/23/22 Primary Care Provider: Unknown Physician HPI Reason for consult: dizziness This is a 31-year-old female with past medical history of migraines,Anxiety disorder who presents to the hospital with complaints of severe dizziness.? Patient reports that her symptoms started with a migraine 1 wk ago , she took Excedrin which relieved her symptoms but she woke up in the morning with severe dizziness and lightheadedness as well as vertigo.? She reports that she has had severe As isvertigo to the point that she cannot ambulate, and now she is dependent on her boyfriend for all her ADLs.? She reports that when she walks she has to hold onto rivera or to her boyfriend otherwise she would fall or pass out.? She reports no falling, no recent trauma, no headache, reports no change in vision, no weakness numbness or tingling, her boyfriend noted slow speech with no slurring.? She reports no numbness or tingling in her upper or lower extremities.? She denies any neck pain, no chest pain, no abdominal pain nausea or vomiting, no diarrhea constipation, no urinary symptoms and no lower extremity edema. She was seen for the same on 08/17, was given meclizine, reports no relief with meclizine.?Her MRI was negative, CTA was normal. LP appears to be a traumatic tap. She gets migraine headaches once a week or more lasting a day or 2 with nausea vomiting photophobia and sometimes the dizziness. She is not on any prophylactic medications for this. She is treated by her PCP at [facility] in [place]. No triggers have been identified. Her current vertigo is more of a lightheadedness. Review of Systems Review of Systems: Constitutional: No Fever, No Chills, No Fatigue, No Malaise ENT/Mouth: No Ear Pain, No Nasal Congestion, No Sinus Pain, No Hoarseness, No sore throat, No Rhinorrhea, No Swallowing Difficulty Eyes: No Eye Pain, No Swelling, No Redness, No Discharge, + intermittent blurry vision Cardiovascular: No Chest Pain, No SOB, No Dyspnea on Exertion, No Orthopnea, No Edema, No Palpitations Respiratory: No Cough, No Sputum, No Dyspnea Gastrointestinal: No Nausea, No Vomiting, No Diarrhea, No Constipation, No Abdominal pain Genitourinary: No Dysuria, No Urinary Frequency, No Hematuria, No Urinary Incontinence/retention, No Urgency, No Flank Pain, No Urinary Flow Changes Musculoskeletal: No joint pain, No Myalgias, No Joint Swelling Skin: No Skin Lesions, No rash Neuro: No Weakness, No Numbness, No Paresthesias, No Loss of Consciousness, + Dizziness, +lightheadedness, + intermittent Headache Yes all other systems are reviewed and are negative Constitutional: Constitutional: Reports as per HPI Eyes: Eyes: Reports photophobia Neurologic: Denies Abnormal speech present [facility] Past Medical History Medical History (Updated 08/23/22 @ 17:37 by Gautam Cordero MD) Hypothyroidism Migraines Family History Family History (Updated 08/23/22 @ 06:15 by Daisha Sutherland MD) Mother Vertigo Surgical History Surgical History (Updated 08/23/22 @ 06:15 by Daisha Sutherland MD) No pertinent past surgical history Social History Social History Patient Tobacco Use Status: Never used Tobacco service: No Meds Allergies Allergy/AdvReac Type Severity Reaction Status Date / Time hydrocodone AdvReac Nausea and Verified 08/17/22 09:39 Vomiting oxycodone AdvReac Nausea and Uncoded 08/17/22 09:39 Vomiting Active Medications: Current Medications Acetaminophen (Acetaminophen 325 Mg Tablet) 650 mg PO Q6H PRN PRN Reason: Pain, Mild (Pain Scale 1-3) Last Admin: 08/23/22 12:29 Dose: 650 mg Docusate Sodium (Docusate Sodium 100 Mg Capsule) 100 mg PO DAILY PRN PRN Reason: Constipation Lactated Ringer's (Lr) 1,000 mls @ 100 mls/hr IVCONT .Q10H ROSEANNA Last Admin: 08/23/22 09:09 Dose: 100 mls/hr Ondansetron HCl (Ondansetron Hcl 4 Mg/2 Ml Vial) 4 mg IVPUSH Q8H PRN PRN Reason: Nausea and Vomiting Sodium Chloride (0.9 % Sodium Chloride Flush 3 Ml Syringe) 3 ml IVFLUSH QSHIFT ROSEANNA Last Admin: 08/23/22 15:13 Dose: Not Given Home Medications Medication Instructions Recorded Confirmed Last Taken Type acetaminophen 325 mg tablet 650 mg PO Q4H PRN Pain 08/23/22 08/23/22 Unknown History (Tylenol) Physical Exam Vital Signs: Vital Signs: Last Vital Signs Temp 98.8 F 08/23/22 16:19 Pulse 71 08/23/22 16:19 Resp 18 08/23/22 16:19 BP 103/61 08/23/22 16:19 Pulse Ox 99 08/23/22 16:19 O2 Del Method 08/23/22 16:19 BMI result Body Mass Index 26.4 Const: General: cooperative, healthy appearing, no acute distress, alert and awake Orientation/consciousness: patient oriented x3 Limitations: no limitations HEENT: Head: Yes normal to inspection and Yes atraumatic Ears: hearing grossly normal bilaterally General nose exam: Normal external nose present Face and sinus: Yes normal facial exam Eyes: General: appearance normal, both eyes and all related structures Pupils: Equal, round and reactive pupils present EOM: EOMs intact bilaterally Direct Ophthalmoscopy: photophobia Neck: Neck: Yes normal visual inspection and Yes no meningeal signs Resp: Effort & Inspection: normal respiratory effort and no respiratory distress Auscultation: clear to auscultation bilaterally, no crackles, no rales, no rhonchi and no wheezes Cardio: Rate: regular rate Rhythm: regular rhythm Heart sounds: S1 normal heart sound present and S2 normal heart sound present GI: Inspection: Yes normal to inspection Palpation (GI): Soft to palpation, nontender, no guarding and not rigid Auscultation: normal bowel sounds Skin: General skin exam: no rashes or lesions noted Rashes: no rashes Wounds: no wounds Neuro: Other: She has a few beats of nystagmus on left lateral gaze. Remainder of the neuro exam is nonfocal. Gait was not testeed General: patient oriented x3, tone normal, moves all extremities, no meningeal signs, no focal motor deficits and CN's II-XI intact bilaterally Cranial nerves: Yes Equal, round and reactive pupils present Cognition (Neuro): normal cognition Speech: No Abnormal speech present Motor exam (neuro): 5/5 motor strength present throughout, Pronator motor function not present and no tremor noted Coordination: [id number] test normal Romberg Test: Negative Extrem: General: Yes normal to inspection and Yes no pedal edema Results Labs CBC & Chem 7: 08/23/22 06:07 08/23/22 06:07 Labs: Short CBC 08/23/22 Range/Units 06:07 WBC 6.5 (4.8-10.8) X10*3/uL Hgb 11.4 L (12.0-16.0) g/dl Hct 34.0 L (37.0-47.0) % Plt Count 181 (160-400) X10*3/uL BMP 08/23/22 06:07 Sodium 140 Potassium 3.7 Chloride 109 H Carbon Dioxide 20 L BUN 5 L Creatinine 0.55 Calcium 7.8 L Microbiology Microbiology Results: Microbiology 08/22/22 Unknown Urine clean catch - Urine harvey top Urine Culture - Preliminary Culture too young to evaluate. 08/22/22 17:12 Cerebrospinal Fluid Gram Stain - Final 08/22/22 17:12 Cerebrospinal Fluid CSF Examination - Final 08/22/22 17:12 Cerebrospinal Fluid Fluid Description - Final 08/22/22 17:12 Cerebrospinal Fluid CSF Culture - Preliminary No growth to date. Assessment and Plan (1) Unsteady gait: Status: Acute (2) Vertigo: Status: Acute Vestibular neuronitis with superimposed anxiety. Recommendation: Meclizine 25 mg 4 times a day. Clonazepam 0.5 mg twice a day. 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 headache: Status: Acute Start migraine prophylaxis with topiramate 25 mg twice a day Plan 31-year-old female with past medical history of hypothyroidism as well as migraine headaches presents to the hospital with severe vertigo # vertigo - although MRI of the brain showed possible abnormality, there was no abnormality seen on CT angiogram head and neck - this could be related to her migraine headaches - neurology consulted - at this time admit for further evaluation # hypothyroidism - patient reports noncompliance - less TSH of 4.71 on 08/17 - recommend continue home medications- patient does not know dosage # migraine headache - p.r.n. Tylenol DVT prophylaxis: Early ambulation Procedures Date of Service Date of Service: 08/23/22
--- NOTE | 2022-08-23 16:26 | HO.PM.IMPN ---
Subjective Subjective Date of Service: 08/24/22 Interval History: ? vertiago Review of Systems she says symptoms are slightly improving but still has significant dizziness Denies any chest pain or shortness of breath or abdominal pain or fever or chills. denies any significant headaches Physical Exam Vital Signs: Vital Signs: Last Vital Signs Temp 98.8 F 08/23/22 16:19 Pulse 71 08/23/22 16:19 Resp 18 08/23/22 16:19 BP 103/61 08/23/22 16:19 Pulse Ox 99 08/23/22 16:19 O2 Del Method 08/23/22 16:19 BMI result Body Mass Index 26.4 Appearance: Alert.? Oriented X3.? still dizzy.? cvs: rrr, [id number] . res: clear to auscultation ,no rhonchii or wheezing abd: no rebound or guarding ,nt, bs present. ext pulses present , no cyanosis ,somewhat unteady with walkin. neuro: axo3 , nonfocal. Objective Data Active Medications Acetaminophen (Acetaminophen 325 Mg Tablet) 650 mg PO Q6H PRN PRN Reason: Pain, Mild (Pain Scale 1-3) Last Admin: 08/23/22 12:29 Dose: 650 mg Documented By: TIO Docusate Sodium (Docusate Sodium 100 Mg Capsule) 100 mg PO DAILY PRN PRN Reason: Constipation Lactated Ringer's (Lr) 1,000 mls @ 100 mls/hr IVCONT .Q10H REPLACED BY [facility] Last Admin: 08/23/22 09:09 Dose: 100 mls/hr Documented By: TIO Meclizine HCl (Meclizine Hcl 25 Mg Tablet) 25 mg PO TID PRN PRN Reason: dizziness Ondansetron HCl (Ondansetron Hcl 4 Mg/2 Ml Vial) 4 mg IVPUSH Q8H PRN PRN Reason: Nausea and Vomiting Ondansetron HCl (Ondansetron Odt 4 Mg Tab.Rapdis) 4 mg TRANSLINGU Q8H PRN PRN Reason: nausea and vomiting Sodium Chloride (0.9 % Sodium Chloride Flush 3 Ml Syringe) 3 ml IVFLUSH QSHIFT REPLACED BY [facility] Last Admin: 08/23/22 15:13 Dose: Not Given Documented By: TIO Non-Admin Reason: IV Running Labs CBC & Chem 7: 08/23/22 06:07 08/23/22 06:07 Labs: Laboratory Results - last 24 hr 08/22/22 08/22/22 08/22/22 17:12 17:12 17:12 MCV MCH MCHC RDW Plt Count MPV Immature Gran % (Auto) Neut % (Auto) Lymph % (Auto) Centre % (Auto) Eos % (Auto) Baso % (Auto) Lymph # (Auto) Centre # (Auto) Eos # (Auto) Baso # (Auto) Abs Immat Gran (auto) Absolute Neuts (auto) Absolute Nucleated RBC Nucleated RBC % (auto) Anion Gap Estim Creat Clear Calc Estimated GFR Random Glucose Calcium Troponin I High Sens CSF Tube Number 3 4 1 CSF Volume 0.5 0.5 CSF Appearance CLEAR CLEAR CSF Color COLORLESS COLORLESS CSF WBC 5 5 CSF RBC 84 1126 CSF Neutrophils 20 25 CSF Lymphocytes 60 50 CSF Monocytes % 10 25 CSF Other Cells % 10 CSF Appearance (b) Clear, Colorless CSF Glucose 80 CSF Total Protein 357.2 H 08/22/22 08/23/22 08/23/22 18:46 06:07 06:07 MCV 90.9 MCH 30.5 MCHC 33.5 RDW 12.9 Plt Count 181 MPV 12.5 H Immature Gran % (Auto) 0.3 Neut % (Auto) 49.0 Lymph % (Auto) 38.5 Centre % (Auto) 8.3 Eos % (Auto) 3.1 Baso % (Auto) 0.8 Lymph # (Auto) 2.5 Centre # (Auto) 0.5 Eos # (Auto) 0.2 Baso # (Auto) 0.1 Abs Immat Gran (auto) 0.02 Absolute Neuts (auto) 3.2 Absolute Nucleated RBC 0.000 Nucleated RBC % (auto) 0.0 Anion Gap 15 Estim Creat Clear Calc 125.3 Estimated GFR > 60 Random Glucose 94 Calcium 7.8 L Troponin I High Sens 4.8 CSF Tube Number CSF Volume CSF Appearance CSF Color CSF WBC CSF RBC CSF Neutrophils CSF Lymphocytes CSF Monocytes % CSF Other Cells % CSF Appearance (b) CSF Glucose CSF Total Protein Microbiology Microbiology Results: Microbiology 08/22/22 Unknown Urine Culture - Preliminary Urine clean catch - Urine harvey top Culture too young to evaluate. 08/22/22 17:12 Gram Stain - Final Cerebrospinal Fluid CSF Examination - Final Fluid Description - Final CSF Culture - Preliminary No growth to date. Assessment and Plan (1) Migraine aura occurring with and without headache: Status: Acute (2) Vertigo: Status: Acute Plan 31-year-old female with past medical history of hypothyroidism as well as migraine headaches presents to the hospital with severe vertigo # vertigo - although MRI of the brain showed possible abnormality, there was no abnormality seen on CT angiogram head and neck - this could be related to her migraine headaches Lp noted -has rbc 1100 range wbc 5 , total protein 357 - neurology consulted - at this time admit for further evaluation # hypothyroidism - patient reports noncompliance - less TSH of 4.71 on 08/17 - recommend continue home medications- patient does not know dosage # migraine headache - p.r.n. Tylenol DVT prophylaxis: Early ambulation inpatient need :Vertiago-? unclear etiology -need further workup and neurology eval Quality Stroke Does the patient have a stroke diagnosis?: No VTE Prior VTE?: No VTE Risk Level:: Medical - low VTE Device Contraindication: N/A - Device Ordered VTE Drug Contraindication: Treatment Not Indicated
--- NOTE | 2022-08-23 17:15 | PC.NURSE ---
Neurologist at bedside with patient at this time.
[2022-08-23] MEDS: clonazePAM 0.5 MG TABLET PO (19:41)
[2022-08-23] MEDS: Topiramate 25 MG TABLET PO (19:41)
[2022-08-24 03:01] VITALS: BP 100/61; PULSE 73; RESP 14; TEMP 36.6; O2SAT 97
[2022-08-24] MEDS: Lactated Ringers 1,000 ML 100 ML IVCONT ×2 (03:17→14:05)
[2022-08-24 08:00] VITALS: BP 101/59; PULSE 65; RESP 12; TEMP 37.3; O2SAT 92
[2022-08-24] MEDS: Topiramate 25 MG TABLET PO ×2 (09:26→21:22)
[2022-08-24] MEDS: 0.9 % Sodium Chloride Flush 3 ML SYRINGE IVFLUSH (09:26)
[2022-08-24 12:00] VITALS: BP 99/57; PULSE 76; RESP 12; TEMP 36.8; O2SAT 97
--- NOTE | 2022-08-24 13:32 | HO.PM.IMPN ---
Subjective Subjective Date of Service: 08/25/22 Interval History: ? vertiago Review of Systems she says symptoms are slightly improving but still has significant dizziness Denies any chest pain or shortness of breath or abdominal pain or fever or chills. denies any significant headaches Physical Exam Vital Signs: Vital Signs: Last Vital Signs Temp 98.3 F 08/24/22 12:00 Pulse 76 08/24/22 12:00 Resp 12 08/24/22 12:00 BP 99/57 L 08/24/22 12:00 Pulse Ox 97 08/24/22 12:00 O2 Del Method 08/24/22 12:00 BMI result Body Mass Index 26.4 Appearance: Alert.? Oriented X3.? still dizzy.? cvs: rrr, [id number] . res: clear to auscultation ,no rhonchii or wheezing abd: no rebound or guarding ,nt, bs present. ext pulses present , no cyanosis ,somewhat unteady with walkin. neuro: axo3 , nonfocal. Objective Data Active Medications Acetaminophen (Acetaminophen 325 Mg Tablet) 650 mg PO Q6H PRN PRN Reason: Pain, Mild (Pain Scale 1-3) Last Admin: 08/23/22 18:42 Dose: 650 mg Documented By: SATYA Clonazepam (Clonazepam 0.5 Mg Tablet) 0.5 mg PO BID PRN PRN Reason: vesitiblar neuritis Last Admin: 08/23/22 19:41 Dose: 0.5 mg Documented By: MAYNOR Docusate Sodium (Docusate Sodium 100 Mg Capsule) 100 mg PO DAILY PRN PRN Reason: Constipation Lactated Ringer's (Lr) 1,000 mls @ 100 mls/hr IVCONT .Q10H ROSEANNA Last Admin: 08/24/22 03:17 Dose: 100 mls/hr Documented By: MAYNOR Meclizine HCl (Meclizine Hcl 25 Mg Tablet) 25 mg PO RQID PRN PRN Reason: dizziness Ondansetron HCl (Ondansetron Hcl 4 Mg/2 Ml Vial) 4 mg IVPUSH Q8H PRN PRN Reason: Nausea and Vomiting Ondansetron HCl (Ondansetron Odt 4 Mg Tab.Rapdis) 4 mg TRANSLINGU Q8H PRN PRN Reason: nausea and vomiting Sodium Chloride (0.9 % Sodium Chloride Flush 3 Ml Syringe) 3 ml IVFLUSH QSHIFT [facility] Last Admin: 08/24/22 09:26 Dose: 3 ml Documented By: GILMAR Topiramate (Topiramate 25 Mg Tablet) 25 mg PO BID [facility] Last Admin: 08/24/22 09:26 Dose: 25 mg Documented By: GILMAR Labs CBC & Chem 7: 08/23/22 06:07 08/23/22 06:07 Microbiology Microbiology Results: Microbiology 08/22/22 Unknown Urine Culture - Final Urine clean catch - Urine harvey top 08/22/22 17:12 Gram Stain - Final Cerebrospinal Fluid CSF Examination - Final Fluid Description - Final CSF Culture - Preliminary No growth after 1 day Assessment and Plan (1) Vertigo: Status: Acute (2) 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 still feels significant dizziness-added topiramate, adjusted meclizine . # hypothyroidism - patient reports noncompliance - less TSH of 4.71 on 08/17 - recommend continue home medications- patient does not know dosage # migraine headache - p.r.n. Tylenol DVT prophylaxis: Early ambulation inpatient? need :Vertiago-? unclear etiology -symptomatic . Quality Stroke Does the patient have a stroke diagnosis?: No VTE Prior VTE?: No VTE Risk Level:: Medical - low VTE Device Contraindication: N/A - Device Ordered VTE Drug Contraindication: Treatment Not Indicated
[2022-08-24] MEDS: Meclizine HCl 25 MG TABLET PO ×2 (13:33→21:22)
[2022-08-24] MEDS: Acetaminophen 325 MG TABLET 650 MG PO ×2 (13:34→21:24)
[2022-08-24 16:00] VITALS: BP 93/53; PULSE 85; RESP 15; TEMP 37.3; O2SAT 97
[2022-08-24] MEDS: Docusate Sodium 100 MG CAPSULE PO (18:01)
[2022-08-24 19:25] VITALS: BP 112/65; PULSE 80; RESP 18; TEMP 37.2; O2SAT 99
[2022-08-24 23:30] VITALS: BP 125/67; PULSE 75; RESP 14; TEMP 36.7; O2SAT 98
[2022-08-25] MEDS: Lactated Ringers 1,000 ML 100 ML IVCONT (00:11)
[2022-08-25 03:53] VITALS: BP 96/51; RESP 16; TEMP 36.3; O2SAT 97
[2022-08-25] MEDS: ondansetron HCL 4 MG/2 ML VIAL IVPUSH ×2 (04:04→14:17)
[2022-08-25 07:47] VITALS: BP 108/61; PULSE 70; RESP 16; TEMP 36.6; O2SAT 97
--- NOTE | 2022-08-25 08:22 | P.DS_ITS ---
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 Patient reports that her symptoms started with a migraine on 09 15, she took Excedrin which resolved her symptoms but she woke up in the morning with severe dizziness and lightheadedness as well as vertigo.? She reports that she has had severe side vertigo to the point that she cannot ambulate, and now she is dependent on her boyfriend for all her ADLs.? She reports that when she walks she has to hold onto rivera or to her boyfriend otherwise she would fall or pass out.? She reports no falling, no recent trauma, no headache, reports no change in vision, no weakness numbness or tingling, her boyfriend noted slow speech with no slurring.? She reports no numbness or tingling in her upper or lower extremities.? She denies any neck pain, no chest pain, no abdominal pain nausea or vomiting, no diarrhea constipation, no urinary symptoms and no lower extremity edema. Of note patient was seen for the same on 08/17, was given meclizine, reports no relief with meclizine.? Vitals on arrival were unremarkable Labs reviewed, show unremarkable findings, UA positive for leukocyte Estrace and WBC, patient denies any symptoms LP was done which showed large amount of protein of 357, a large amount of RBC. MRI of the brain showed no acute infarct, mass lesion, or evidence of hydrocephalus, there is mild non suppression of FLAIR signal seen within the high frontal parietal sulci, this finding is nonspecific and could be artifactual or related to trace subarachnoid hemorrhage or other causes of meningeal inflammation. Case was discussed with Neurology, recommended CT angiogram of head and neck and admission, head and neck CT angiogram shows no acute intracranial abnormality including hemorrhage mass effect hydrocephalus or acute a territory edematous infarct, no arterial high-grade stenosis or large vessel occlusion and then head or neck, and embolus craniocervical junction Patient will be admitted for further evaluation. Hospital course: Patient was admitted for vertigo-seen by Neurology-Cta and MRI ,lumbar puncture results(please see labs and imaging section below) reviewed by neurology : possibly related to vestibular neuritis/migraine in addition possibly has anxiety component also: Started on topiramate, adjusted meclizine -patient seems to be improving ,walking better: Patient is going home with above medications. Seen by psych-currently does not need psych medications including clonazepam for anxiety recommended to psych follow-up out patiently . Further management outpatient. Above management discussed with the patient in detail length she understand and in agreement with the above plan, time spent 50 minutes and 50% time spent on counseling. Significant findings: As above. Procedures performed: None. Treatment and response: As above. Complications: None. Time Spent with Patient Time attestation: Total time spent providing and/or coordinating discharge services: Discharge coordination time: Greater than 30 minutes Quality: Safe Use of Opioids Does Pt have an Active Cancer Diagnosis on the Problem List?: No Quality: Stroke Does the patient have a stroke diagnosis?: No Physical Exam Vital Signs: Vital Signs: Last Vital Signs Temp 97.9 F 08/25/22 07:47 Pulse 70 08/25/22 07:47 Resp 16 08/25/22 07:47 BP 108/61 08/25/22 07:47 Pulse Ox 97 08/25/22 07:47 O2 Del Method 08/25/22 07:47 BMI result Body Mass Index 26.4 Appearance: Alert.? Oriented X3.? not in distress.? Eyes: Pupils equal, round and reactive to light.? Sclera nonicteric.? ENT: Pharynx normal.? Moist mucous membranes. cvs: rrr, [id number] . res: clear to auscultation ,no rhonchii or wheezing abd: no rebound or guarding ,nt, bs present. ext pulses present , no cyanosis . neuro: axo3 , nonfocal. DS: Data Data Completed and Pending Labs on day of discharge: Preliminary micro results at discharge 08/22/22 17:12 CSF Culture - Preliminary Cerebrospinal Fluid No growth after 1 day Imaging MRI - head: Radiologist's impression: ITS Impressions Brain MRI 08/22/22 13:10 IMPRESSION: No acute infarct, mass lesion, or evidence of hydrocephalus. Mild nonsuppression of FLAIR signal seen within the high frontal parietal sulci. This finding is nonspecific and could be artifactual or related to trace subarachnoid hemorrhage or other causes of meningeal inflammation. If clinical signs of meningeal inflammation are present, consider lumbar puncture. Head/Neck CTA 08/22/22 21:25 IMPRESSION: 1. No acute intracranial abnormality including hemorrhage, mass effect, hydrocephalus, or acute territorial edematous infarction. 2. No arterial high-grade stenosis or large vessel occlusion in the head or neck. 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 Additional Comments Additional comments: ?08/22/22 Unknown Urine Culture - Final ?Urine clean catch - Urine harvey top ? ?08/22/22 17:12 Gram Stain - Final ?Cerebrospinal Fluid CSF Examination - Final ? Fluid Description - Final ? CSF Culture - Preliminary ? ?? No growth after 1 day Discharge Plan Discharge Patient Disposition: Home, Self-Care Discharge Diagnosis: vertiago/dizziness Referrals: [facility] Neuro/Sleep [Provider Group] Physician,Unknown J [Physician] - 1 Week Discharge Medications: New topiramate 25 mg Tablet 25 mg PO BID Qty: 30 0RF Continued ondansetron 4 mg tablet,disintegrating 4 mg PO Q8H PRN (Reason: nausea and vomiting) Qty: 20 0RF acetaminophen [Tylenol] 325 mg Tablet 650 mg PO Q4H PRN (Reason: Pain) Changed meclizine 25 mg tablet 25 mg PO QID PRN (Reason: dizziness) Qty: 30 0RF Discharge Orders: Discharge Order (Routine); Ordered 08/25/22 Ordered By: Gabriele Gross Diet: Advance to usual diet Activity on Discharge: As tolerated Stand Alone Forms: Patient Portal Discharge page, Work/School Release Care Plan Goals: Patient was admitted for vertigo possibly related to vestibular neuritis/ migraine in addition possibly has anxiety component also: Started on topiramate, adjusted meclizine patient seems to be improving ,walking better: Patient is going home with above medications. Seen by psych-currently does not need psych medications including clonazepam for anxiety recommended to psych follow-up out patiently . Further management outpatient. Health Concerns: Follow-up with PCP, consider outpatient neurology follow-up if symptoms come back. Plan of Treatment: As above. Assessment: As above. Patient Instructions: Clonazepam (By mouth), Meclizine (By mouth), Topiramate (By mouth), Vertigo (DC), Dizziness (ED)
[2022-08-25] MEDS: Meclizine HCl 25 MG TABLET PO ×2 (09:14→12:12)
[2022-08-25] MEDS: Topiramate 25 MG TABLET PO (09:14)
[2022-08-25] MEDS: Docusate Sodium 100 MG CAPSULE PO (12:53)
--- NOTE | 2022-08-25 13:31 | P.CNPS_ITS ---
History of Present Illness Date of Service: 08/25/2022 Chief Complaint: Vertigo Reason for Consult: anxiety Requesting physician: Gabriele Gross Discussed with referring provider: Yes Sources of Information: patient interviewed, chart reviewed and crisis/core team assessment reviewed Additional Sources of Information: Significant other at the bedside. HPI Narrative: Ms. Quezada is a 31 year-old woman admitted to [facility] [place] to [place]. Pt underwent extensive work up including LP, MRI, angio CT, seen by neurology. Pt improving in symptoms of vertigo, able to walk better, scheduled to be discharged today. Psychiatry consult place to address anxiety, which was thought to be contributing factor to presentation. Pt seen with her significant other who is at bedside. Pt reports feeling less nauseous, and more steady when walking. She reports some residual s/s of vertigo. Pt shares appropriate worry about physical symptoms and hopes they (quickly) resolved completely. When asked about anxiety, pt reports she has tendency to be anxious person. However, pt reports she is able to work and function well. Pt reports feeling more anxious at night and this causing some delayed in falling asleep. Partner reports once she falls asleep, she sleeps through the night. Pt denies symptoms of depression. She does report her father about one year ago and this brings sadness anx anxiety but again not to the point of being disabling or affecting overall level of functioning. Pt denies suicidal ideation or hx of. She does recall having dose of ativan in ED, which put me to sleep. No clear benefit with clonazepam. She does report increased anxious mood in close places like small rooms or elevators, but again her and her partner do not think is problematic at this point. Past Psychiatric History: Inpt: none OP: none Medical Evaluation Reviewed: Yes [facility] Medical History (Updated 08/25/22 @ 14:00 by Kassidy Boles) Hypothyroidism Migraines Surgical History (Updated 08/23/22 @ 06:15 by Daisha Sutherland MD) No pertinent past surgical history Diagnostics Vital Signs (24Hr): Vital Signs - 24 hr 08/24/22 16:00 08/24/22 19:25 08/24/22 23:30 Temperature 99.1 F 99.0 F 98.0 F Pulse Rate 85 80 75 Respiratory Rate 15 18 14 Blood Pressure 93/53 L 112/65 125/67 Pulse Oximetry 97 99 98 Oxygen Delivery Method Room Air Room Air Room Air 08/25/22 03:53 08/25/22 07:47 Temperature 97.3 F 97.9 F Pulse Rate 70 Respiratory Rate 16 16 Blood Pressure 96/51 L 108/61 Pulse Oximetry 97 97 Oxygen Delivery Method Room Air Room Air BMI result Body Mass Index 26.4 Labs Results: 08/23/22 06:07 08/23/22 06:07 Imaging Radiology Impressions: ITS Impressions Brain MRI 08/22/22 13:10 IMPRESSION: No acute infarct, mass lesion, or evidence of hydrocephalus. Mild nonsuppression of FLAIR signal seen within the high frontal parietal sulci. This finding is nonspecific and could be artifactual or related to trace subarachnoid hemorrhage or other causes of meningeal inflammation. If clinical signs of meningeal inflammation are present, consider lumbar puncture. Head/Neck CTA 08/22/22 21:25 IMPRESSION: 1. No acute intracranial abnormality including hemorrhage, mass effect, hydrocephalus, or acute territorial edematous infarction. 2. No arterial high-grade stenosis or large vessel occlusion in the head or neck. 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 Mental Status Exam Mental Status Exam Narrative: Appearance: wearing hospital gown, fair hygiene in NAD Behavior: cooperative psychomotor: no agitation or retardation noted Speech: clear, normal rate/rhythm/volume, spontaneous Thought process: linear Thought content: no s/s of psychosis or delusional content, future oriented looking forward to return to work, some anxiety related to residual symptoms of vertigo Mood: better Affect: congruent, brightens at times. SI:none HI: none VH/AH: none Delusions:none Insight/judgment:fair x 2. Memory/cog: alert, oriented x 3. grossly intact to conversational testing. Medications Medications Current Medications Acetaminophen (Acetaminophen 325 Mg Tablet) 650 mg PO Q6H PRN PRN Reason: Pain, Mild (Pain Scale 1-3) Last Admin: 08/24/22 21:24 Dose: 650 mg Clonazepam (Clonazepam 0.5 Mg Tablet) 0.5 mg PO BID PRN PRN Reason: vesitiblar neuritis Last Admin: 08/23/22 19:41 Dose: 0.5 mg Docusate Sodium (Docusate Sodium 100 Mg Capsule) 100 mg PO DAILY PRN PRN Reason: Constipation Last Admin: 08/25/22 12:53 Dose: 100 mg Meclizine HCl (Meclizine Hcl 25 Mg Tablet) 25 mg PO RQID ROSEANNA Last Admin: 08/25/22 12:12 Dose: 25 mg Ondansetron HCl (Ondansetron Hcl 4 Mg/2 Ml Vial) 4 mg IVPUSH Q8H PRN PRN Reason: Nausea and Vomiting Last Admin: 08/25/22 04:04 Dose: 4 mg Ondansetron HCl (Ondansetron Odt 4 Mg Tab.Rapdis) 4 mg TRANSLINGU Q8H PRN PRN Reason: nausea and vomiting Sodium Chloride (0.9 % Sodium Chloride Flush 3 Ml Syringe) 3 ml IVFLUSH QSHIFT [facility] Last Admin: 08/25/22 09:15 Dose: Not Given Topiramate (Topiramate 25 Mg Tablet) 25 mg PO BID [facility] Last Admin: 08/25/22 09:14 Dose: 25 mg Allergies Allergies Allergy/AdvReac Type Severity Reaction Status Date / Time hydrocodone AdvReac Nausea and Verified 08/17/22 09:39 Vomiting oxycodone AdvReac Nausea and Uncoded 08/17/22 09:39 Vomiting Assessment & Plan Assessment & Plan (1) Adjustment disorder with anxiety: Status: Acute Code(s): F43.22 - Adjustment disorder with anxiety Plan Ms. Quezada is a 31 year-old woman admitted to medical floor for evaluation of vertigo, extensive work up completed including LP, MRI, angio CT, grossly unremarkable. Pt medically cleared and due to be discharged today. Consult to psych re: anxiety. Pt reports underlying anxious mood, worsened at night, and in certain confined places. However, neither pt or her partner think anxiety is to the level of affecting ability to function, well being or overall quality of life. Pt does report appropriate concern and anxiety related to residual s/s of vertigo, but does agree that is much improved. No acute safety concerns in terms of SI. PLAN: No need to send rx for clonazepam or any other rx for benzodiazepam. Pt does not report particular benefit from it nor anxiety is her main concern at this point. Pt advised to follow up with psychiatric care if at any point s/s of depression or anxiety arise and are debilitating. I spent minutes with the patient and/or on the patient floor today, greater than?50% of which was spent counseling/coordinating care.
--- NOTE | 2022-08-25 14:02 | MHC.CM.PN ---
Patient has been medically cleared for dc to home today, self care.
== END 2022-08-25 14:37 | disposition home or self-care (01) ==
LOC: HO.ED 23:09 → HO.EDOVER 23:17 → HO.IMC 08-23 16:14
PROVIDERS: Physician Assistant; Admitting Provider Internal Medicine; Emergency Provider Emergency Medicine; PCP Nurse Practitioner Adult Health; Visit Provider Internal Medicine
DX: R42 Dizziness and giddiness (principal); G43.909 Migraine, unspecified, not intractable, without status migrainosus; R26.81 Unsteadiness on feet; I95.1 Orthostatic hypotension; E83.51 Hypocalcemia; F43.22 Adjustment disorder with anxiety; Z20.822 Contact with and (suspected) exposure to COVID-19; E03.9 Hypothyroidism, unspecified
CPT/HCPCS: 36415; 62270; 70496; 70498; 70551; 80048; 80076; 81001; 81025; 82945; 83735; 84157; 84484; 85025; 87015; 87070; 87086; 87205; 87635; 89051; 93005; 96361; 96374; 96375; 96376; 99219; 99285; J1200; J2250; J2405